=== PATIENT | female | born 1980 | race American Indian/Alaskan Native ===

== ENCOUNTER 2020-01-20 16:05 | Emergency (ER) | payer SELFPAY ==
[2020-01-20 16:55] VITALS: BP 217/103
--- NOTE | 2020-01-20 18:20 | Emergency Department Report ---
- General Chief complaint: Skin Rash Stated complaint: INSECT BITE Time Seen by Provider: 01/20/20 18:12 Source: patient Mode of arrival: Ambulatory Limitations: No Limitations - History of Present Illness Initial comments: 39-year-old F Filipino female presents emerged department complaining of insect bites to the left lower extremity of an unknown become to get red verna thematous and some blistering and she is worried about an infection and seeks treatment and further evaluation. No numbness or tingling. No fever, chills, sweats no chest pain palpitations no nausea or vomiting. MD complaint: insect bite/sting, discoloration -: Gradual, days(s) Tetanus Up to Date: no Location: LLE Severity: mild Quality: dull Consistency: constant Improves with: none Worsens with: none Context: none Associated symptoms: itching Treatments Prior to Arrival: none - Related Data Previous Rx's Medication Instructions Recorded Last Taken Type Clindamycin [Clindamycin CAP] 150 mg PO Q8HR #21 capsule 01/20/20 Unknown Rx Abscess Boil HPI - HPI Chief Complaint: Skin Rash Stated Complaint: INSECT BITE Time Seen by Provider: 01/20/20 18:12 Home Medications: Previous Rx's Medication Instructions Recorded Last Taken Type Clindamycin [Clindamycin CAP] 150 mg PO Q8HR #21 capsule 01/20/20 Unknown Rx ED Review of Systems ROS: Stated complaint: INSECT BITE Other details as noted in HPI Comment: All other systems reviewed and negative ED Past Medical Hx - Past Medical History Previous Medical History?: Yes Hx Hypertension: Yes Additional medical history: Crohns Disease - Surgical History Past Surgical History?: Yes Additional Surgical History: times 3 - Social History Smoking Status: Former Smoker Substance Use Type: None - Medications Home Medications: Home Medications Medication Instructions Recorded Confirmed Last Taken Type Clindamycin [Clindamycin CAP] 150 mg PO Q8HR #21 capsule 01/20/20 Unknown Rx ED Physical Exam - General Limitations: No Limitations General appearance: alert, in no apparent distress - Head Head exam: Present: atraumatic, normocephalic - Eye Eye exam: Present: normal appearance, PERRL, EOMI Pupils: Present: normal accommodation - ENT ENT exam: Present: normal exam, mucous membranes moist, TM's normal bilaterally - Neck Neck exam: Present: normal inspection, full ROM - Respiratory Respiratory exam: Present: normal lung sounds bilaterally. Absent: respiratory distress, wheezes, rales, chest wall tenderness - Cardiovascular Cardiovascular Exam: Present: regular rate, normal rhythm. Absent: systolic murmur, diastolic murmur, rubs, gallop - GI/Abdominal GI/Abdominal exam: Present: soft, normal bowel sounds - Extremities Exam Extremities exam: Present: normal inspection - Back Exam Back exam: Present: normal inspection. Absent: CVA tenderness (R), CVA tenderness (L) - Neurological Exam Neurological exam: Present: alert, oriented X3, CN II-XII intact - Psychiatric Psychiatric exam: Present: normal affect, normal mood - Skin Skin exam: Present: warm, dry, erythema (3 areas of blistering 2 areas of induration to the left lower extremity no lymphangitis noted. Tenderness with palpation to those indurated sites. Scant clear discharge from the posterior blistered wound. No popliteal mass. Pulses 2+ cap letter refills are brisk). Absent: rash ED Course Vital Signs 01/20/20 16:47 Temperature 98.9 F Pulse Rate 72 Respiratory 16 Rate Blood Pressure 217/103 [Right] O2 Sat by Pulse 99 Oximetry Critical care attestation.: If time is entered above; I have spent that time in minutes in the direct care of this critically ill patient, excluding procedure time. ED Disposition Clinical Impression: Insect bite Disposition: DC-01 TO HOME OR SELFCARE Is pt being admited?: No Does the pt Need Aspirin: No Condition: Stable Instructions: Insect Bite, Adult Additional Instructions: Please be sure to follow-up with your HAND STRIPPER with in 2 to 3 days for reevaluation alert number the medication that you are currently taking so they can follow along with the treatment progress Prescriptions: Clindamycin [Clindamycin CAP] 150 mg PO Q8HR #21 capsule Referrals: [facility] [Provider Group] - 3-5 Days
== END 2020-01-20 18:32 | disposition home or self-care (01) ==
LOC: ED 16:05
DX: S80.862A Insect bite (nonvenomous), left lower leg, initial encounter (principal); I10 Essential (primary) hypertension; Z98.890 Other specified postprocedural states; Z87.891 Personal history of nicotine dependence; Z79.899 Other long term (current) drug therapy; W57.XXXA Bitten or stung by nonvenomous insect and other nonvenomous arthropods, initial encounter; Y93.89 Activity, other specified; Y92.89 Other specified places as the place of occurrence of the external cause; Y99.8 Other external cause status
CPT/HCPCS: 99281

== ENCOUNTER 2020-03-24 14:23 | Emergency (ER) | payer MEDICAID ==
[2020-03-24 14:42] VITALS: BP 193/107
--- NOTE | 2020-03-24 15:03 | Emergency Department Report ---
ED General Adult HPI - General Chief complaint: High BP Stated complaint: HYPERTENSIVE Time Seen by Provider: 03/24/20 14:56 Source: patient Mode of arrival: Ambulatory Limitations: No Limitations - History of Present Illness Initial comments: Patient is a 39-year-old, 16-week , hypertensive female who presents to the emergency department after being sent by her WILDLIFE PROTECTOR office (by triage nurse, prior to evaluation, at facility where she was a new patient) for evaluation of hypertension noted during routine 4-month obstetric evaluation. Patient notes noncompliance with amlodipine since November. Patient denies headache, denies chest pain, denies palpitations. Patient denies fever, though notes she has been sick with upper respiratory infection symptoms for the past several days. - Related Data Previous Rx's Medication Instructions Recorded Last Taken Type Clindamycin [Clindamycin CAP] 150 mg PO Q8HR #21 capsule 01/20/20 Unknown Rx labetaloL [Labetalol 100mg TAB] 100 mg PO BID #60 tablet 03/24/20 Unknown Rx Allergies Allergy/AdvReac Type Severity Reaction Status Date / Time Penicillins Allergy Rash Verified 03/24/20 14:38 ED Review of Systems ROS: Stated complaint: HYPERTENSIVE Other details as noted in HPI Comment: All other systems reviewed and negative ED Past Medical Hx - Past Medical History Previous Medical History?: Yes Hx Hypertension: Yes Additional medical history: Crohns Disease - Surgical History Additional Surgical History: times 3 - Social History Smoking Status: Never Smoker - Medications Home Medications: Home Medications Medication Instructions Recorded Confirmed Last Taken Type Clindamycin [Clindamycin CAP] 150 mg PO Q8HR #21 capsule 01/20/20 Unknown Rx labetaloL [Labetalol 100mg TAB] 100 mg PO BID #60 tablet 03/24/20 Unknown Rx ED Physical Exam - General Limitations: No Limitations General appearance: alert, in no apparent distress - Head Head exam: Present: atraumatic, normocephalic - Eye Eye exam: Present: normal appearance - ENT ENT exam: Present: mucous membranes moist - Neck Neck exam: Present: normal inspection - Respiratory Respiratory exam: Present: normal lung sounds bilaterally. Absent: respiratory distress - Cardiovascular Cardiovascular Exam: Present: regular rate, normal rhythm. Absent: systolic murmur, diastolic murmur, rubs, gallop - GI/Abdominal GI/Abdominal exam: Present: soft, normal bowel sounds, other (gravid) - Extremities Exam Extremities exam: Present: normal inspection - Back Exam Back exam: Present: normal inspection - Neurological Exam Neurological exam: Present: alert, oriented X3 - Psychiatric Psychiatric exam: Present: normal affect, normal mood - Skin Skin exam: Present: warm, dry, intact, normal color. Absent: rash ED Course Vital Signs 03/24/20 03/24/20 14:39 16:28 Temperature 99.1 F Pulse Rate 90 Respiratory 18 18 Rate Blood Pressure 193/107 O2 Sat by Pulse 100 100 Oximetry ED Medical Decision Making - Lab Data Result diagrams: 03/24/20 15:09 03/24/20 15:09 Critical care attestation.: If time is entered above; I have spent that time in minutes in the direct care of this critically ill patient, excluding procedure time. ED Disposition Clinical Impression: Hypertensive disorder, Noncompliance with medication regimen Disposition: - TO HOME OR SELFCARE Is pt being admited?: No Condition: Stable Instructions: Hypertension During , Hypertension, Adult, Hypertension (ED) Prescriptions: labetaloL [Labetalol 100mg TAB] 100 mg PO BID #60 tablet Referrals: DIANE HUTCHINS MD [Primary Care Provider] - 3-5 Days
[2020-03-24 15:31] LABS: Basophils % (Auto) 0.3 % (0.0-1.8); Eosinophils # (Auto) 0.2 K/mm3 (0.0-0.4); Eosinophils % (Auto) 2.3 % (0.0-4.3); Hematocrit 36.3 % (30.3-42.9); Hemoglobin 11.8 gm/dl (10.1-14.3); Lymphocytes # (Auto) 1.5 K/mm3 (1.2-5.4); Lymphocytes % (Auto) 16.2 % (13.4-35.0); Mean Corpuscular HGB Conc 32 % (30-34); Mean Corpuscular Volume 83 fl (79-97); Monocytes # (Auto) 0.7 K/mm3 (0.0-0.8); Monocytes % (Auto) 7.4 % (0.0-7.3); Platelet Count 211 K/mm3 (140-440); Red Blood Count 4.39 M/mm3 (3.65-5.03); Red Cell Distribution Width 14.3 % (13.2-15.2)
[2020-03-24 15:35] LABS: Bacteria,Urine 1+ /HPF (Negative); Bilirubin,Urine NEG (Negative); Blood,Urine NEG (Negative); Color,Urine Yellow (Yellow); Mucus,Urine FEW /HPF; Protein,Urine <15 mg/dL mg/dL (Negative); Urobilinogen,Urine < 2.0 mg/dL (<2.0)
[2020-03-24 15:58] LABS: Alanine Aminotransferase 23 units/L (7-56); Albumin 3.5 g/dL (3.9-5); Blood Urea Nitrogen 10 mg/dL (7-17); Hemolysis Index 4
[2020-03-24 16:03] LABS: BUN/Creatinine Ratio 17
[2020-03-24] MEDS ORDERED: MAGNESIUM SULFATE 0 GM/0 ML BAG IV ONE (16:29)
[2020-03-24] MEDS ORDERED: MAGNESIUM SULFATE 1 GM in SODIUM CHLORIDE 0.9% 50 ML IV ONE (17:00)
== END 2020-03-24 17:29 | disposition home or self-care (01) ==
LOC: ED 14:23
DX: I10 Essential (primary) hypertension (principal); Z91.14 Patient's other noncompliance with medication regimen; Z79.899 Other long term (current) drug therapy; Z88.0 Allergy status to penicillin
CPT/HCPCS: 36415; 80053; 81001; 83735; 85025; 96365; 99283; J3475

== ENCOUNTER 2020-04-13 12:16 | Emergency (ER) | payer MEDICAID ==
--- NOTE | 2020-04-13 12:52 | Emergency Department Report ---
ED General Adult HPI - General Chief complaint: High BP Stated complaint: HIGH BLOOD PRESSURE/19WKS 5 DAYS Time Seen by Provider: 04/13/20 12:31 Source: patient Mode of arrival: Ambulatory Limitations: No Limitations - History of Present Illness Initial comments: Patient is 39 years old female 4 para 3 with history of hypertension. Patient currently followed by [facility]. Patient stated that she is 19 weeks and 5 days . Patient sent from her OB doctor to the ER for evaluation of high blood pressure. Patient blood pressure is 191/100. Patient is complaining of headache. Patient denied any neck pain, blurry vision, weakness numbness or tingling sensation. Patient denied any abdominal pain, vaginal bleeding or vaginal discharge. Patient started on labetalol 100 mg twice a day and recently increased to 200 mg twice a day. -: This morning Location: head Radiation: non-radiation Associated Symptoms: denies other symptoms Treatments Prior to Arrival: none - Related Data Previous Rx's Medication Instructions Recorded Last Taken Type Clindamycin [Clindamycin CAP] 150 mg PO Q8HR #21 capsule 01/20/20 Unknown Rx labetaloL [Labetalol 100mg TAB] 100 mg PO BID #60 tablet 03/24/20 Unknown Rx Allergies Allergy/AdvReac Type Severity Reaction Status Date / Time Penicillins Allergy Rash Verified 04/13/20 12:20 ED Review of Systems ROS: Stated complaint: HIGH BLOOD PRESSURE/19WKS 5 DAYS Other details as noted in HPI Comment: All other systems reviewed and negative Constitutional: denies: chills, fever Respiratory: denies: cough, shortness of breath, SOB with exertion Cardiovascular: denies: chest pain, palpitations Gastrointestinal: denies: abdominal pain, nausea, vomiting Musculoskeletal: denies: back pain Neurological: headache. denies: weakness, numbness, paresthesias, confusion, abnormal gait ED Past Medical Hx - Past Medical History Hx Hypertension: Yes Additional medical history: Crohns Disease - Surgical History Additional Surgical History: times 3 - Social History Smoking Status: Never Smoker - Medications Home Medications: Home Medications Medication Instructions Recorded Confirmed Last Taken Type Clindamycin [Clindamycin CAP] 150 mg PO Q8HR #21 capsule 01/20/20 Unknown Rx labetaloL [Labetalol 100mg TAB] 100 mg PO BID #60 tablet 03/24/20 Unknown Rx ED Physical Exam - General Limitations: No Limitations General appearance: alert, in no apparent distress - Head Head exam: Present: atraumatic, normocephalic, normal inspection - Eye Eye exam: Present: normal appearance, PERRL - ENT ENT exam: Present: normal exam, normal orophraynx, mucous membranes moist - Neck Neck exam: Present: normal inspection, full ROM. Absent: tenderness, meningismus - Respiratory Respiratory exam: Present: normal lung sounds bilaterally - Cardiovascular Cardiovascular Exam: Present: regular rate, normal rhythm, normal heart sounds - GI/Abdominal GI/Abdominal exam: Present: soft, normal bowel sounds. Absent: distended, tenderness, guarding, rebound, rigid, organomegaly, mass, bruit, pulsatile mass, hernia - Extremities Exam Extremities exam: Present: normal inspection, full ROM, normal capillary refill. Absent: pedal edema, calf tenderness - Back Exam Back exam: Present: normal inspection, full ROM. Absent: CVA tenderness (R), CVA tenderness (L) - Neurological Exam Neurological exam: Present: alert, oriented X3, CN II-XII intact, normal gait, reflexes normal. Absent: motor sensory deficit - Psychiatric Psychiatric exam: Present: normal mood - Skin Skin exam: Present: warm, intact, normal color ED Course Vital Signs 04/13/20 04/13/20 04/13/20 12:24 13:05 13:07 Temperature 99.4 F Pulse Rate 75 66 Respiratory 18 12 Rate Blood Pressure 191/100 Blood Pressure 167/80 [Right] O2 Sat by Pulse 99 100 99 Oximetry 04/13/20 04/13/20 04/13/20 13:08 13:15 13:45 Temperature Pulse Rate 66 71 77 Respiratory 22 16 Rate Blood Pressure 167/80 167/80 151/77 Blood Pressure [Right] O2 Sat by Pulse 99 98 Oximetry 04/13/20 04/13/20 04/13/20 14:15 14:31 14:53 Temperature Pulse Rate 62 61 66 Respiratory 19 21 19 Rate Blood Pressure 131/67 144/72 Blood Pressure 147/78 [Right] O2 Sat by Pulse 96 99 99 Oximetry ED Medical Decision Making - Lab Data Result diagrams: 04/13/20 12:53 04/13/20 12:53 - Medical Decision Making Patient is 39 years old female 4 para 3 with history of hypertension. Patient currently followed by [facility]. Patient stated that she is 19 weeks and 5 days . Patient sent from her OB doctor to the ER for evaluation of high blood pressure. Patient blood pressure is 191/100. Patient is co mplaining of headache. Patient denied any neck pain, blurry vision, weakness numbness or tingling sensation. Patient denied any abdominal pain, vaginal bleeding or vaginal discharge. Patient started on labetalol 100 mg twice a day and recently increased to 200 mg twice a day. Patient received labetalol 10mg x 2 with improvement in her blood pressure however patient received a call from her home stating that her water has been cut off by water department and she became very upset her blood pressure went up again to 197/100. I discussed the patient with Dr. Mariscal, OB for the patient she advised to give hydralazine 20 mg IV and discharged the patient on labetalol 200 mg 3 times a day instead of 2 times a day. Patient informed about the change and understand instruction very well. Patient also advised to return to the ER if she develop any new symptoms or if symptoms get worse. At this moment patient stated that she does not have any headache, neck pain, weakness, numbness or tingling sensation. No bowel or bladder incontinence. Patient also denied any vaginal bleeding or abdominal pain. Critical care attestation.: If time is entered above; I have spent that time in minutes in the direct care of this critically ill patient, excluding procedure time. ED Disposition Clinical Impression: Hypertension affecting in second trimester, Disposition: TO HOME OR SELFCARE Is pt being admited?: No Condition: Stable Instructions: Hypertension (ED), Hypertension During , [id number] Referrals: PRIMARY CAR[facility]D [Primary Care Provider] - 3-5 Days MONY MARISCAL MD [Staff Physician] - 3-5 Days
[2020-04-13 13:12] LABS: Basophils % (Auto) 0.2 % (0.0-1.8); Eosinophils # (Auto) 0.2 K/mm3 (0.0-0.4); Eosinophils % (Auto) 2.8 % (0.0-4.3); Hematocrit 35.8 % (30.3-42.9); Hemoglobin 11.8 gm/dl (10.1-14.3); Lymphocytes # (Auto) 1.7 K/mm3 (1.2-5.4); Lymphocytes % (Auto) 20.5 % (13.4-35.0); Mean Corpuscular HGB Conc 33 % (30-34); Mean Corpuscular Volume 82 fl (79-97); Monocytes # (Auto) 0.5 K/mm3 (0.0-0.8); Monocytes % (Auto) 6.4 % (0.0-7.3); Platelet Count 196 K/mm3 (140-440); Red Blood Count 4.35 M/mm3 (3.65-5.03); Red Cell Distribution Width 14.2 % (13.2-15.2)
[2020-04-13 13:21] LABS: INR 0.97 (0.87-1.13)
[2020-04-13 13:22] LABS: Partial Thromboplastin Time 27.6 Sec. (24.2-36.6)
[2020-04-13 13:31] LABS: Alanine Aminotransferase 30 units/L (7-56); Albumin 3.5 g/dL (3.9-5); Blood Urea Nitrogen 6 mg/dL (7-17); Hemolysis Index 5
[2020-04-13 13:40] LABS: BUN/Creatinine Ratio 9; Bilirubin,Direct < 0.2 mg/dL (0-0.2)
[2020-04-13] MEDS ORDERED: hydrALAZINE 20 MG/1 ML INJ IV ONE (15:44)
[2020-04-13 18:26] LABS: Bacteria,Urine 1+ /HPF (Negative); Bilirubin,Urine NEG (Negative); Blood,Urine NEG (Negative); Color,Urine Straw (Yellow); Protein,Urine <15 mg/dL mg/dL (Negative); Urobilinogen,Urine < 2.0 mg/dL (<2.0)
[2020-04-13] MEDS ORDERED: ACETAMINOPHEN 325 MG TAB PO ONE (18:42)
[2020-04-13 18:47] VITALS: BP 146/84
== END 2020-04-13 19:15 | disposition home or self-care (01) ==
LOC: ED 12:16
DX: O16.2 Unspecified maternal hypertension, second trimester (principal); Z3A.19 19 weeks gestation of pregnancy; Z98.890 Other specified postprocedural states; Z79.2 Long term (current) use of antibiotics; Z79.899 Other long term (current) drug therapy; Z88.0 Allergy status to penicillin
CPT/HCPCS: 36415; 80048; 80076; 81001; 85025; 85610; 85730; 96374; 96375; 96376; 99283; J0360

== ENCOUNTER 2020-04-19 15:48 | Outpatient (CLI) | payer MEDICAID ==
[2020-04-19 17:24] LABS: Bilirubin,Urine NEG (Negative); Blood,Urine NEG (Negative); Color,Urine Yellow (Yellow); Mucus,Urine FEW /HPF
[2020-04-19 18:12] VITALS: BP 136/58
== END 2020-04-19 18:31 | disposition home or self-care (01) ==
LOC: TRG 15:48 → APU 15:50 → TRG 18:31
PROVIDERS: ATTEND Obstetrics & Gynecology
DX: O13.3 Gestational [pregnancy-induced] hypertension without significant proteinuria, third trimester (principal); Z3A.20 20 weeks gestation of pregnancy
CPT/HCPCS: 81001

== ENCOUNTER 2020-04-30 11:37 | Observation (INO) | payer MEDICAID ==
[2020-04-30] MEDS ORDERED: LACTATED RINGERS 1,000 ML IV SCH (13:30)
[2020-04-30 13:42] LABS: Bilirubin,Urine NEG (Negative); Blood,Urine NEG (Negative); Color,Urine Yellow (Yellow); Protein,Urine <15 mg/dL mg/dL (Negative); RBC,Urine < 1.0 /HPF (0.0-6.0); Urobilinogen,Urine < 2.0 mg/dL (<2.0)
[2020-04-30 13:56] LABS: Hematocrit 36.1 % (30.3-42.9); Hemoglobin 12.1 gm/dl (10.1-14.3); Mean Corpuscular HGB Conc 34 % (30-34); Mean Corpuscular Volume 83 fl (79-97); Platelet Count 192 K/mm3 (140-440); Red Blood Count 4.33 M/mm3 (3.65-5.03); Red Cell Distribution Width 13.9 % (13.2-15.2)
[2020-04-30 14:13] LABS: Alanine Aminotransferase 22 units/L (7-56); Uric Acid 3.1 mg/dL (3.5-7.6)
[2020-04-30] MEDS: hydrALAZINE 20 MG/1 ML INJ IV PRN ×2 (14:17→14:43)
[2020-04-30] MEDS ORDERED: diphenhydrAMINE 25 MG CAP PO PRN (14:55)
[2020-04-30] MEDS ORDERED: SIMETHICONE 80 MG CHEW TAB PO PRN (14:55)
[2020-04-30] MEDS ORDERED: DOCUSATE SODIUM 100 MG CAP PO PRN (14:55)
[2020-04-30] MEDS ORDERED: ALUM-MAG HYDROXIDE-SIMETHICONE 200-200-20MG/5ML ORAL LIQD 30 ML PO PRN (14:55)
--- NOTE | 2020-04-30 14:58 | Ultrasound Report ---
US transvaginal, US OB limited INDICATION: PAIN. TECHNIQUE: Transabdominal. Color Doppler was performed. COMPARISON: None available. FINDINGS: There is a single intrauterine . Biparietal Diameter = 5 cm Head Circumference = 18.8 cm Abdominal Circumference = 15.8 cm Femur Length = 3.7 cm Average Ultrasound Age (AUA) = 21 weeks, 1 day(s). Heart Rate: 141 beats per minute. Estimated Weight in grams (if calculated): 408 Position: breech. Cervix: Length in cm (if measured): 2.7 cm. Appears closed. Placenta: Posterior and low lying Amniotic Fluid Volume: normal Amniotic Fluid Index (ALEXSANDRA) in cm (if calculated): 4.3. IMPRESSION: 1. Single, living intrauterine with estimated sonographic age of 21 weeks, 1 day(s). 2. Low-lying placenta. Signer Name: Terrance Zuniga MD Signed: 04/30/2020 2:53 PM Workstation Name: [id number]
[2020-04-30] MEDS ORDERED: hydrALAZINE 20 MG/1 ML INJ IV ONE (15:10)
[2020-04-30] MEDS: ACETAMINOPHEN 500 MG TAB PO PRN (15:20)
--- NOTE | 2020-04-30 16:19 | History and Physical Report ---
History of Present Illness Date of examination: 04/30/20 Chief complaint: lower abdominal pain that is sharp and intermittent for the past 2wks. pt also states that she is stressed at work. History of present illness: at 22wks by EDC per pt and care at [facility]. Pt also seen by [facility]. Pt came with c/o abdominal pain that is intermittent x2wks. Pt admits to movement, denies headache, vag bleed or leakage of fluid or feeling ctx. Pt denies dysuria. Past History Past Medical History: other (Crohns disease dx in 2010 on no meds) Past Surgical History: section (x3, last baby 14yrs ago) Social history: no significant social history - Obstetrical History : 6 Para: 3 (all full term c/sections) Hx # Term Pregnancies: 3 Spontaneous Abortions: 2 Number of Living Children: 3 Medications and Allergies Allergies Allergy/AdvReac Type Severity Reaction Status Date / Time Penicillins Allergy Rash Verified 04/13/20 12:20 Home Medications Medication Instructions Recorded Confirmed Last Taken Type Clindamycin [Clindamycin CAP] 150 mg PO Q8HR #21 capsule 01/20/20 Unknown Rx labetaloL [Labetalol 100mg TAB] 100 mg PO BID #60 tablet 03/24/20 Unknown Rx labetaloL [Labetalol 200mg TAB] 200 mg PO TID #90 tablet 04/13/20 Unknown Rx Active Meds: Active Medications Acetaminophen (Acetaminophen 500 Mg Tab) 1,000 mg PO Q6H PRN PRN Reason: Pain, Mild (1-3) Last Admin: 04/30/20 15:20 Dose: 1,000 mg Documented by: Al Hydrox/Mg Hydrox/Simethicone (Alum-Mag Hydroxide-Simethicone [phone]/5ml Oral Liqd 30 Ml) 30 ml PO Q6H PRN PRN Reason: Indigestion Diphenhydramine HCl (Diphenhydramine 25 Mg Cap) 25 mg PO Q6H PRN PRN Reason: Itching Docusate Sodium (Docusate Sodium 100 Mg Cap) 100 mg PO Q12H PRN PRN Reason: Constipation Hydralazine HCl (Hydralazine 20 Mg/1 Ml Inj) 5 mg IV ONCE PRN PRN Reason: repeat in 10 min Last Admin: 04/30/20 14:43 Dose: 5 mg Documented by: Lactated Ringer's (Lactated Ringers) 1,000 mls @ 125 mls/hr IV DIRECT [facility] Labetalol HCl (Labetalol 200 Mg Tab) 300 mg PO BID [facility] Last Admin: 04/30/20 15:24 Dose: 300 mg Documented by: Multivitamins/Iron/Calcium ( [id number] Fumarate-Folic Acid Vit Tab) 1 each PO QDAY [facility] Simethicone (Simethicone 80 Mg Chew Tab) 80 mg PO Q6H PRN PRN Reason: Gas pain Sodium Chloride (Sodium Chloride 0.9% 10 Ml Flush Syringe) 10 ml IV PRN PRN PRN Reason: LINE FLUSH Review of Systems All systems: negative (abdominal pain that is intermittent) - Vital Signs Vital signs: Vital Signs Pulse BP 67 169/85 04/30/20 12:49 04/30/20 12:49 Temp Pulse Resp BP Pulse Ox 98.8 F 79 20 123/67 97 04/30/20 13:02 04/30/20 16:10 04/30/20 13:02 04/30/20 16:04 04/30/20 16:10 - Physical Exam Cardiovascular: Regular rate Lungs: Positive: Normal air movement Abdomen: Positive: soft Uterus: Positive: enlarged (non-tender gravid) Extremities: Positive: normal - Obstetrical FHR: category 1 Uterine Contraction Monitor Mode: External Uterine Contraction Pattern: Absent Results Result Diagrams: 04/30/20 Unknown 04/30/20 Unknown Abnormal lab results 04/30/20 Range/Units Unknown Uric Acid 3.1 L (3.5-7.6) mg/dL Lactate Dehydrogenase 226 H (91-180) units/L All other labs normal. Assessment and Plan IUP at 22wks with uncontrolled hypertension and abdominal pain of unknown cause 1. Admit to 24hr observation 2. Consult [facility] 3. Treat with IV hydrallazine and increase po labetalol to 300mg bid 4. Check pih labs baseline 5. OB u/sound and transvag with low lying placenta 6. Obtain records all questions encouraged and answered
--- NOTE | 2020-04-30 16:54 | Consultation ---
History of Present Illness Consult date: 04/30/20 Requesting physician: CHARLIE ARMSTRONG History of present illness: [facility] Ms. Villagran is a 39 y/o LIZ 09/02/20 EGA at 22 1/7 weeks presented with Lower abdominal and Left Lower pelvic pain Abdominal pain over past 2 weeks - lower pelvic pain more severe last couple days was 6/10 now resolved - worse " when I am at work at [employer] I stand 8-11 hours a day " Denies Vag bleeding ctx's or leaking, Pos FM's On presentation to hospital BP's noted to be elevated at 178/104 per nurse - received IV hydralazine X 2 and PO labetalo increased from 200 BID to 300 BID BP's now improved latest 125/65, 137/59 Recent BHATTI' (" attributed to not eating ") received Tylenol now improved H/O Crohns Ds Labs H/H at AST/ALT at Creat at .6 UA spot Prot at < 15 Plts at 192 OB C/S X 3 2001 T C/S FTP, 2004 Repeat, 2006 repeat ?? PP HTN after last 2 Med Crohns - no flares over past few years in remission not on meds No sTD Pos smoker 1 per day Surg C/S X 3 Abd gravid No RUQ Pain Back No CVA Ext NT no edema DTR 1-04/15 , no clonus [facility] US 04/30/20 EFW at 408 grams - 11% [facility] US 04/06/20 EFW at 235 grams - 24% Past History Past Medical History: other (Crohns disease dx in 2010 on no meds) Past Surgical History: section (x3, last baby 14yrs ago) - Obstetrical History : 6 Medications and Allergies Allergies Allergy/AdvReac Type Severity Reaction Status Date / Time Penicillins Allergy Rash Verified 04/13/20 12:20 Home Medications Medication Instructions Recorded Confirmed Last Taken Type Clindamycin [Clindamycin CAP] 150 mg PO Q8HR #21 capsule 01/20/20 Unknown Rx labetaloL [Labetalol 100mg TAB] 100 mg PO BID #60 tablet 03/24/20 Unknown Rx labetaloL [Labetalol 200mg TAB] 200 mg PO TID #90 tablet 04/13/20 Unknown Rx Active Meds: Active Medications Acetaminophen (Acetaminophen 500 Mg Tab) 1,000 mg PO Q6H PRN PRN Reason: Pain, Mild (1-3) Last Admin: 04/30/20 15:20 Dose: 1,000 mg Documented by: Al Hydrox/Mg Hydrox/Simethicone (Alum-Mag Hydroxide-Simethicone [phone]/5ml Oral Liqd 30 Ml) 30 ml PO Q6H PRN PRN Reason: Indigestion Diphenhydramine HCl (Diphenhydramine 25 Mg Cap) 25 mg PO Q6H PRN PRN Reason: Itching Docusate Sodium (Docusate Sodium 100 Mg Cap) 100 mg PO Q12H PRN PRN Reason: Constipation Hydralazine HCl (Hydralazine 20 Mg/1 Ml Inj) 5 mg IV ONCE PRN PRN Reason: repeat in 10 min Last Admin: 04/30/20 14:43 Dose: 5 mg Documented by: Lactated Ringer's (Lactated Ringers) 1,000 mls @ 125 mls/hr IV DIRECT [facility] Labetalol HCl (Labetalol 200 Mg Tab) 300 mg PO BID [facility] Last Admin: 04/30/20 15:24 Dose: 300 mg Documented by: Multivitamins/Iron/Calcium ( [id number] Fumarate-Folic Acid Vit Tab) 1 each PO QDAY [facility] Simethicone (Simethicone 80 Mg Chew Tab) 80 mg PO Q6H PRN PRN Reason: Gas pain Sodium Chloride (Sodium Chloride 0.9% 10 Ml Flush Syringe) 10 ml IV PRN PRN PRN Reason: LINE FLUSH - Vital Signs Vital signs: Vital Signs Pulse BP 67 169/85 04/30/20 12:49 04/30/20 12:49 Temp Pulse Resp BP Pulse Ox 98.8 F 82 20 135/79 99 04/30/20 13:02 04/30/20 16:45 04/30/20 13:02 04/30/20 16:35 04/30/20 16:45 Results Result Diagrams: 04/30/20 Unknown 04/30/20 Unknown Abnormal lab results 04/30/20 Range/Units Unknown Uric Acid 3.1 L (3.5-7.6) mg/dL Lactate Dehydrogenase 226 H (91-180) units/L All other labs normal. Assessment and Plan Impression: 1. [place] IUP at 22 1/7 weeks 2. CHTN with Elevated BP's 3. Lower Abdominal Pain 4. H/O Crohns ds 5. Prior C/S X 3 6. Smoker 7. AMA Recommendations 1. Agree with increasing Labetalol from 200 to 300 BID 2. Encouraged to try to find job where she is not required to stand 8-11 hours per day 3. Stop smoking 4. LDA 5. PIH labs done - WNL 6. Would obtain baseline 24 Hour urine prot and CC 7. If BP' remain stable overnight would allow discharge on Labetalol 300 BID and LDA - Call for S/S of PIH or DFM' and follow up with [facility] at next scheduled appointment
[2020-04-30] MEDS: ASPIRIN 81 MG TAB CHEW PO SCH (21:50)
--- NOTE | 2020-05-01 06:53 | Event Note ---
Date: 05/01/20 BP noticed to be elevated during the night however nurse did not call me. I spoke later with the nurse who states that when pt is lying on her back her BP was elevated and when retaken on her right side, they were normal. Pt slept well during the night and denies any headache. Nurse told to call MD next time with elevated BP. At this time pt is stable on labetalol 300mg bid and low dose aspirin 81mg daily. Will notify the insulation helper provider for today.
[2020-05-01] MEDS ORDERED: PRENATAL VIT27-FE FUMARATE-FOLIC ACID VIT TAB PO SCH (10:00)
[2020-05-01] MEDS: ASPIRIN 81 MG TAB CHEW PO SCH (12:55)
[2020-05-01] MEDS: ACETAMINOPHEN 500 MG TAB PO PRN (12:57)
--- NOTE | 2020-05-01 17:11 | Progress Note ---
Assessment and Plan - Patient Problems (1) Chronic hypertension affecting Current Visit: Yes Status: Acute Plan to address problem: Patient with elevated BPs, titrated from labetolol 200mg BID to 300mg BID --BPs overall nontensive but with occasional spikes associated with position changes or activity, monitor closely --Continue labetolol 300mg BID, titrate as indicated --ASA 81mg qday --Monitor for s/sx of SPE --Dispo pending 24H TP, has close follow up Sunday and Sunday of next week Subjective - Subjective Date of service: 05/01/20 Principal diagnosis: r/o PTL, CHTN, Chron dz Interval history: Patient doing well without complaints. Denies labor complaints or PIH symptoms. +FM. Understands plan of care for BP monitoring and completion of 24H TP. Patient thinks that triggers from BP are personal/family Hx of BP issues and job where she needs to be up and active. Has found another job, but doesn't start u ntil May 2020. Objective - Vital Signs Latest vital signs: Vital Signs Temp Pulse Resp BP BP BP Pulse Ox 05/01/20 16:46 79 169/74 05/01/20 16:16 64 130/66 05/01/20 15:46 72 148/68 05/01/20 15:16 75 135/68 05/01/20 14:46 73 137/70 05/01/20 14:16 65 136/66 05/01/20 13:46 71 158/76 05/01/20 13:16 68 138/63 05/01/20 12:57 16 05/01/20 12:46 67 145/85 05/01/20 12:17 65 138/73 05/01/20 11:46 71 123/64 05/01/20 11:16 70 127/63 05/01/20 10:46 76 132/61 05/01/20 10:16 75 110/56 05/01/20 09:46 82 104/51 05/01/20 09:22 79 119/57 05/01/20 09:16 79 119/57 05/01/20 08:46 64 168/77 05/01/20 08:16 64 150/75 05/01/20 07:45 65 135/75 05/01/20 07:20 64 174/81 02/20/21 07:08 98.5 F 65 14 153/72 153/72 100 02/20/21 07:00 98.9 F 92 H 14 140/74 02/20/21 06:46 64 166/76 02/20/21 06:15 63 149/67 02/20/21 06:07 65 141/66 02/20/21 06:05 141/66 02/20/21 05:53 98.4 F 61 18 185/84 02/20/21 05:50 61 185/84 02/20/21 05:46 67 197/97 02/20/21 05:17 64 173/81 02/20/21 04:46 68 191/84 02/20/21 04:16 73 158/89 02/20/21 03:46 71 139/69 02/20/21 03:16 71 132/62 02/20/21 03:10 61 147/88 0220/21 02:46 74 180/86 02/20/21 02:16 70 135/60 02/20/21 01:46 76 139/65 02/20/21 01:23 96 H 88 02/20/21 01:19 85 100 02/20/21 01:13 66 99 02/20/21 01:08 68 98 02/20/21 01:03 73 98 02/20/21 00:58 69 97 02/20/21 00:53 68 99 02/20/21 00:48 66 97 02/20/21 00:45 70 137/90 02/20/21 00:43 69 98 02/20/21 00:38 71 99 02/20/21 00:33 70 99 02/20/21 00:28 73 97 02/20/21 00:23 68 99 02/20/21 00:18 74 99 02/20/21 00:15 65 144/77 02/20/21 00:13 73 100 02/20/21 00:08 65 99 02/20/21 00:03 66 99 02/19/21 23:58 69 100 02/19/21 23:53 73 99 02/19/21 23:48 68 98 02/19/21 23:46 65 155/85 02/19/21 23:45 98.2 F 20 02/19/21 23:43 68 99 02/19/21 23:38 67 100 02/19/21 23:29 81 98 04/30/20 23:28 83 116/57 04/30/20 23:24 74 96 04/30/20 23:19 70 96 04/30/20 23:17 72 116/57 04/30/20 23:14 74 97 04/30/20 23:09 73 96 04/30/20 23:04 70 96 04/30/20 22:59 78 100 04/30/20 22:54 70 98 04/30/20 22:49 68 97 04/30/20 22:45 69 128/61 04/30/20 22:44 70 94 04/30/20 22:43 71 94 04/30/20 22:39 93 H 98 04/30/20 22:37 71 94 04/30/20 22:34 72 94 04/30/20 22:32 74 94 04/30/20 22:29 73 95 04/30/20 22:26 76 94 04/30/20 22:24 76 95 04/30/20 22:20 71 94 04/30/20 22:19 72 94 04/30/20 22:15 73 132/68 04/30/20 22:14 73 97 04/30/20 22:12 78 94 04/30/20 22:09 77 95 04/30/20 22:04 75 96 04/30/20 21:59 72 97 04/30/20 21:54 92 H 100 04/30/20 21:49 80 98 04/30/20 21:47 98.0 F 72 16 137/63 137/63 04/30/20 21:44 81 99 04/30/20 21:39 75 97 04/30/20 21:34 86 98 04/30/20 21:29 72 97 04/30/20 21:24 87 98 04/30/20 21:19 72 98 04/30/20 21:15 72 132/64 04/30/20 21:14 76 97 04/30/20 21:09 76 98 04/30/20 21:04 81 99 04/30/20 20:59 91 H 99 02 20:54 93 H 98 04/30/20 20:49 76 98 04/30/20 20:46 71 143/79 04/30/20 20:45 86 90 04/30/20 20:44 80 97 04/30/20 20:36 79 100 04/30/20 20:31 76 98 04/30/20 20:26 78 100 04/30/20 20:21 79 97 04/30/20 20:16 74 98 04/30/20 20:15 74 127/62 04/30/20 20:11 74 97 04/30/20 20:06 84 99 04/30/20 20:01 74 97 04/30/20 19:56 75 98 04/30/20 19:51 73 99 04/30/20 19:46 84 126/60 98 04/30/20 19:41 72 100 04/30/20 19:36 70 98 04/30/20 19:31 72 97 04/30/20 19:26 74 98 04/30/20 19:21 69 99 04/30/20 19:17 71 128/62 04/30/20 19:16 74 97 04/30/20 19:11 78 99 04/30/20 19:06 76 98 04/30/20 19:01 72 98 04/30/20 18:56 69 100 04/30/20 18:51 71 98 04/30/20 18:47 80 136/76 04/30/20 18:46 76 99 04/30/20 18:41 70 96 04/30/20 18:36 70 96 04/30/20 18:35 74 89 04/30/20 18:31 70 98 04/30/20 18:26 76 98 04/30/20 18:21 87 98 04/30/20 18:16 73 98 04/30/20 18:15 58 L 91 04/30/20 17:52 79 99 04/30/20 17:47 70 99 04/30/20 17:42 69 98 04/30/20 17:37 80 100 04/30/20 17:25 74 96 04/30/20 17:20 73 97 04/30/20 17:19 67 135/68 04/30/20 17:15 74 99 04/30/20 17:13 92 H 94 - Exam Cardiovascular: Present: Regular rate, Normal S1 Lungs: Present: Clear to auscultation Abdomen: Present: normal appearance Uterus: Present: other (gravid) Deep Tendon Reflex Grade: Normal +2
[2020-05-01 19:17] VITALS: BP 139/65
--- NOTE | 2020-05-01 19:29 | Discharge Summary ---
Providers - Providers Date of Admission: 04/30/20 14:55 Date of discharge: 05/01/20 Attending physician: CHARLIE ARMSTRONG 04/30/20 14:53 Consult to Physician [CONS] Routine Comment: Consulting Provider: [facility] Physician Instructions: Reason For Exam: hypertension, IUP at 22wk Primary care physician: CHARLIE ARMSTRONG Hospitalization Reason for admission: labor, other (elevated BPs, known CHTN) Pertinent studies: PIH labs wnl TP 255 Hospital course: 39 yo at 22w2d c/b Chrons disease and CHTN (labetelol 200mg BID) presenting with intermittent abdominal pain x 2 weeks. No evidence of labor with normal movement, however with elevated BPs on current management. Increased from labetolol 200 to 300mg BID. PIH labs wnl. Ordered 24H TP, resulted at 255. Patient overall normotensive on current regimen and discharge home in good condition. Now taking ASA 81mg qday and labetolol 300mg BID. Has close outpatient followup. Condition at discharge: Good Disposition: DC-01 TO HOME OR SELFCARE - Discharge Diagnoses (1) Chronic hypertension affecting Status: Acute Plan - Discharge Medications Prescriptions: Labetalol HCl [Labetalol 300mg TAB] 300 mg PO BID #60 tablet - Provider Discharge Summary Activity: other (reduce activity if possible) Diet: routine Instructions: routine Additional instructions: [] Smoking cessation referral if applicable(refer to patient education folder for contact #) [] Refer to [facility] Booklet Call your doctor immediately for: * Fever > 100.5 * Heavy vaginal bleeding ( >1 pad per hour) * Severe persistent headache * Shortness of breath * Reddened, hot, painful area to leg or breast * Drainage or odor from incision. * Keep incision clean and dry at all times and follow doctor's instructions regarding bathing/showering - Follow up plan Follow up: CHARLIE ARMSTRONG MD [Primary Care Provider] - 7 Days
--- NOTE | 2020-05-04 07:17 | Ultrasound Report ---
ULTRASOUND BIOPHYSICAL PROFILE INDICATION / CLINICAL INFORMATION: pain. COMPARISON: 04/30/2020 FINDINGS: Single live intrauterine . Posterior placenta is low-lying. MEASUREMENTS: - Biparietal Diameter = 4.99 cm = 21 weeks 1 day - Head Circumference = 18.8 cm = 21 weeks 1 day - Abdominal Circumference = 15.8 cm = 20 weeks 6 days - Femur Length = 3.7 cm = 21 weeks 4 days - Estimated Weight (in grams, if calculated): 408 g BREATHING MOVEMENT = 2 GROSS BODY MOVEMENT = 2 TONE = 2 QUALITATIVE AMNIOTIC FLUID VOLUME = 2 TOTAL BIOPHYSICAL SCORE = 8/8 AMNIOTIC FLUID INDEX (cm) = 12.3 cm PRESENTATION: Breech. HEART RATE (beats per minute): 141 IMPRESSION: 1. Single live intrauterine , gestational age is 21 weeks 1 day by ultrasound. 2. biophysical profile = 8/8 3. Posterior placenta is low-lying. Recommend continued follow-up at 28 weeks. 4. ALEXSANDRA measures 12.3 cm, within normal limits Signer Name: Tobin Guerin MD Signed: 05/04/2020 7:13 AM Workstation Name: [id number]
== END 2020-05-01 20:56 | disposition home or self-care (01) ==
LOC: TRG 11:37 → APU 11:38 → TRG 14:55 → LD 14:55
PROVIDERS: ADMIT Obstetrics & Gynecology; ATTEND Obstetrics & Gynecology
DX: O10.912 Unspecified pre-existing hypertension complicating pregnancy, second trimester (principal); Z20.822 Contact with and (suspected) exposure to COVID-19; O26.892 Other specified pregnancy related conditions, second trimester; R10.9 Unspecified abdominal pain; R10.2 Pelvic and perineal pain; O09.522 Supervision of elderly multigravida, second trimester; O99.332 Smoking (tobacco) complicating pregnancy, second trimester; F17.210 Nicotine dependence, cigarettes, uncomplicated; Z98.891 History of uterine scar from previous surgery; Z3A.22 22 weeks gestation of pregnancy
CPT/HCPCS: 36415; 59025; 76816; 76817; 81001; 82565; 83615; 84156; 84450; 84460; 84550; 85027; 86850; 86900; 86901; 96374; G0378; J0360; U0003; 76815; 76830; 96360

== ENCOUNTER 2020-05-24 12:57 | Observation (INO) | payer MEDICAID ==
[2020-05-24 14:01] LABS: Bilirubin,Urine NEG (Negative); Blood,Urine NEG (Negative); Color,Urine Yellow (Yellow); Mucus,Urine FEW /HPF; Protein,Urine <15 mg/dL mg/dL (Negative); Urobilinogen,Urine < 2.0 mg/dL (<2.0)
[2020-05-24] MEDS ORDERED: ACETAMINOPHEN 500 MG TAB PO ONE (14:17)
[2020-05-24] MEDS: LACTATED RINGERS 1,000 ML IV SCH ×2 (14:41→18:35)
[2020-05-24 15:10] LABS: Basophils # (Auto) 0.1 K/mm3 (0.0-0.1); Basophils % (Auto) 0.9 % (0.0-1.8); Eosinophils # (Auto) 0.2 K/mm3 (0.0-0.4); Eosinophils % (Auto) 1.3 % (0.0-4.3); Hematocrit 32.8 % (30.3-42.9); Hemoglobin 10.9 gm/dl (10.1-14.3); Lymphocytes # (Auto) 1.7 K/mm3 (1.2-5.4); Lymphocytes % (Auto) 15.1 % (13.4-35.0); Mean Corpuscular HGB Conc 33 % (30-34); Mean Corpuscular Volume 84 fl (79-97); Monocytes # (Auto) 0.7 K/mm3 (0.0-0.8); Monocytes % (Auto) 6.2 % (0.0-7.3); Platelet Count 206 K/mm3 (140-440); Red Blood Count 3.91 M/mm3 (3.65-5.03); Red Cell Distribution Width 13.8 % (13.2-15.2)
[2020-05-24 15:37] LABS: Alanine Aminotransferase 23 units/L (7-56); Albumin 3.2 g/dL (3.9-5); Blood Urea Nitrogen 9 mg/dL (7-17); Calcium 8.9 mg/dL (8.4-10.2); Hemolysis Index 414
[2020-05-24 15:38] LABS: BUN/Creatinine Ratio 15
--- NOTE | 2020-05-24 16:57 | History and Physical Report ---
History of Present Illness Date of examination: 05/24/20 Chief complaint: BHATTI, fatigue, LUQ pain History of present illness: 39 yo at 25w4d c/b Chron's disease (no meds), A neg (needs Rhogam at 28 weeks), Chronic hypertension on labetolol 300mg q8hrs (missed afternoon dose), asthma, prior c/s x 3, AMA, current smoker, reported hx of enlarged heart in 2019 (needs cardiology follow up), Class III Obesity presenting with BHATTI, fatigue, rectal bleeding, LUQ pain. Patient reports pain is similar to hx of Chrons flairs. Past History Past Medical History: hypertension, other (chron's disease, obesity) Past Surgical History: section (x3) Family/Genetic History: hypertension, other (breast CA) Social history: smoking - Obstetrical History : 6 Para: 3 Hx # Term Pregnancies: 3 Spontaneous Abortions: 2 Number of Living Children: 3 Medications and Allergies Allergies Allergy/AdvReac Type Severity Reaction Status Date / Time Penicillins Allergy Rash Verified 04/13/20 12:20 Home Medications Medication Instructions Recorded Confirmed Last Taken Type Labetalol HCl [Labetalol 300mg TAB] 300 mg PO BID #60 tablet 05/01/20 Unknown Rx Active Meds: Active Medications Lactated Ringer's (Lactated Ringers) 1,000 mls @ 125 mls/hr IV DIRECT BRAULIO Last Admin: 05/24/20 14:41 Dose: 125 mls/hr Documented by: Review of Systems All systems: negative (expect HPI) - Vital Signs Vital signs: Vital Signs Temp Pulse Resp BP 98.5 F 72 20 137/76 05/24/20 13:23 05/24/20 13:23 05/24/20 13:23 05/24/20 13:23 Temp Pulse Resp BP Pulse Ox 98.5 F 73 20 131/75 05/24/20 13:23 05/24/20 16:50 05/24/20 14:29 05/24/20 16:50 - Physical Exam Cardiovascular: Regular rate Lungs: Positive: Clear to auscultation, Normal air movement Abdomen: Positive: normal appearance, normal bowel sounds, other (obese) - Obstetrical FHR: category 1 Uterine Contraction Monitor Mode: External Results Result Diagrams: 05/24/20 Unknown 05/24/20 Unknown Abnormal lab results 05/24/20 05/24/20 Range/Units Unknown Unknown WBC 11.3 H (4.5-11.0) K/mm3 Seg Neutrophils % 76.5 H (40.0-70.0) % Seg Neutrophils # 8.6 H (1.8-7.7) K/mm3 Sodium 132 L (137-145) mmol/L Potassium 5.6 H (3.6-5.0) mmol/L AST 48 H (5-40) units/L Albumin 3.2 L (3.9-5) g/dL All other labs normal. Assessment and Plan - Patient Problems (1) Acute Crohn's disease Current Visit: Yes Status: Acute Qualifiers: Digestive disease complication type: with rectal bleeding Qualified Code(s): K50.911 - Crohn's disease, unspecified, with rectal bleeding Plan to address problem: Concern for acute Chrons flair. Patient with hx of Chron's disease. Currently on meds medication. Also with rectal bleeding today. --Consult Hospitalist for further management of possible flair (2) Chronic hypertension affecting Current Visit: No Status: Acute Plan to address problem: LFTs mildly elevated, but not double. Otherwise PIH labs wnl. Patient late on 2nd dose labetolol --Increase labetolol to 400mg q8hr, additional 100mg now --Repeat 24H TP --Continue to monitor for s/sx of preeclampsia
--- NOTE | 2020-05-24 22:31 | Consultation ---
History of Present Illness - Reason for Consult Consult date: 05/24/20 Gi bleed, hx of cronh's disease - History of Present Illness 39 yo at 25w4d c/b Chron's disease (no meds), A neg (needs Rhogam at 28 weeks), Chronic hypertension on labetolol 300mg q8hrs (missed afternoon dose), asthma, prior c/s x 3, AMA, current smoker, reported hx of enlarged heart in 2019 (needs cardiology follow up), Class III Obesity presenting with BHATTI, fatigue, rectal bleeding, LUQ pain. Patient reports pain is similar to hx of Chrons flairs. Past History Past Medical History: hypertension Past Surgical History: Social history: smoking Family history: no significant family history Medications and Allergies Allergies Allergy/AdvReac Type Severity Reaction Status Date / Time Penicillins Allergy Rash Verified 05/24/20 18:49 Home Medications Medication Instructions Recorded Confirmed Last Taken Type Labetalol HCl [Labetalol 300mg TAB] 300 mg PO BID #60 tablet 05/01/20 05/24/20 05/24/20 Rx Aspirin EC [Halfprin EC] 1 tab PO DAILY 05/24/20 05/24/20 05/24/20 10:00 History Active Meds: Active Medications Lactated Ringer's (Lactated Ringers) 1,000 mls @ 125 mls/hr IV DIRECT BRAULIO Last Admin: 05/24/20 18:35 Dose: 125 mls/hr Documented by: Labetalol HCl (Labetalol 200 Mg Tab) 300 mg PO Q8H BRAULIO Review of Systems Constitutional: fatigue Eyes: left: blurred vision Ears, nose, mouth and throat: no epistaxis, no swelling in mouth Breasts: no skin changes Cardiovascular: high blood pressure, no phlebitis Respiratory: no pleurisy Gastrointestinal: abdominal pain, melena, heartburn, belching Genitourinary Female: dyspareunia Rectal: no hemorrhoids Musculoskeletal: no muscle weakness Integumentary: no rash Neurological: no head injury Psychiatric: anxiety, no hypersomnia Exam - Constitutional Vitals: Temp Pulse Resp BP Pulse Ox 98.3 F 64 18 144/66 05/24/20 18:00 05/24/20 22:18 05/24/20 18:00 05/24/20 22:18 General appearance: Present: mild distress, well-nourished - EENT Eyes: Present: PERRL ENT: hearing intact, clear oral mucosa - Neck Neck: Present: supple, normal ROM - Respiratory Respiratory effort: normal Respiratory: bilateral: CTA - Cardiovascular Heart Sounds: Present: S1 & S2. Absent: rub, click - Extremities Extremities: pulses symmetrical, No edema Peripheral Pulses: within normal limits - Abdominal General gastrointestinal: Present: soft, non-tender, non-distended, normal bowel sounds Female genitourinary: Present: normal - Integumentary Integumentary: Present: clear, warm, dry - Musculoskeletal Musculoskeletal: gait normal, strength equal bilaterally - Psychiatric Psychiatric: appropriate mood/affect, intact judgment & insight, cooperative - Neurologic Neurologic: CNII-XII intact, moves all extremities - Allied Health Allied health notes reviewed: nursing Results - Labs CBC & Chem 7: 05/24/20 Unknown 05/24/20 Unknown Labs: Abnormal lab results 05/24/20 05/24/20 Range/Units Unknown Unknown WBC 11.3 H (4.5-11.0) K/mm3 Seg Neutrophils % 76.5 H (40.0-70.0) % Seg Neutrophils # 8.6 H (1.8-7.7) K/mm3 Sodium 132 L (137-145) mmol/L Potassium 5.6 H (3.6-5.0) mmol/L AST 48 H (5-40) units/L Albumin 3.2 L (3.9-5) g/dL Assessment and Plan - Patient Problems (1) Acute Crohn's disease Current Visit: Yes Status: Acute Qualifiers: Digestive disease complication type: with rectal bleeding Qualified Code(s): K50.911 - Crohn's disease, unspecified, with rectal bleeding Plan to address problem: start solumedro 60mg q hrs GI consult Monitor H/h (2) Chronic hypertension affecting Current Visit: No Status: Acute Plan to address problem: Monitor blood pressure Continue antihypertensive
[2020-05-25] MEDS ORDERED: methylPREDNISolone Sod Succinate 125 MG/2 ML INJ IV SCH (06:00)
[2020-05-25] MEDS ORDERED: ALUM-MAG HYDROXIDE-SIMETHICONE 200-200-20MG/5ML ORAL LIQD 30 ML PO PRN (07:35)
[2020-05-25] MEDS ORDERED: hydrALAZINE 20 MG/1 ML INJ IV PRN ×2 (07:35→08:00)
--- NOTE | 2020-05-25 08:03 | Gastroenterology Consultation ---
History of Present Illness - Reason for Consult Consult date: 05/25/20 Crohn's flare Requesting physician: ROGER QUICK - History of Present Illness Is a pleasant 39-year-old female who is currently presents with rectal bleeding She reports having 3 soft and somewhat loose bowel movements daily with blood in each bowel movement she reports seeing bright red blood and clots therefore she came in for further evaluation She reports having been diagnosed with Crohn's disease approximately 10 years ago. However she lacked insurance and so therefore was not being managed and has not any medications She reports really not having many flares in the decade since being diagnosed She does report continuing to smoke about 1/3-1/4 of a pack a day She reports the rectal bleeding associate with mild lower abdominal cramping pain when she has a bowel movement however otherwise she does not have abdominal pain. The only other associated symptom is acid reflux for the past few weeks. She denies generalized abdominal pain currently. No fevers no chills. She is asking if she can eat since she has been n.p.o. and is hungry Obtained/updated/reviewed patient's current medications Past History Past Medical History: hypertension, other (Crohn's) Past Surgical History: Social history: smoking Family history: no significant family history Medications and Allergies Allergies Allergy/AdvReac Type Severity Reaction Status Date / Time Penicillins Allergy Rash Verified 05/24/20 18:49 Home Medications Medication Instructions Recorded Confirmed Last Taken Type Labetalol HCl [Labetalol 300mg TAB] 300 mg PO BID #60 tablet 05/01/20 05/24/20 05/24/20 Rx Aspirin EC [Halfprin EC] 1 tab PO DAILY 05/24/20 05/24/20 05/24/20 10:00 History Active Meds: Active Medications Al Hydrox/Mg Hydrox/Simethicone (Alum-Mag Hydroxide-Simethicone [id number]/5ml Oral Liqd 30 Ml) 15 ml PO Q4H PRN PRN Reason: Indigestion Last Admin: 05/25/20 08:02 Dose: 15 ml Documented by: Hydralazine HCl (Hydralazine 20 Mg/1 Ml Inj) 5 mg IV Q10MIN PRN PRN Reason: Blood Pressure Lactated Ringer's (Lactated Ringers) 1,000 mls @ 125 mls/hr IV DIRECT BRAULIO Last Admin: 05/24/20 18:35 Dose: 125 mls/hr Documented by: Labetalol HCl (Labetalol 200 Mg Tab) 300 mg PO Q8H [facility] Last Admin: 05/25/20 06:13 Dose: 300 mg Documented by: Methylprednisolone Sodium Succinate (Methylprednisolone Sod Succinate 125 Mg/2 Ml Inj) 60 mg IV Q8HR [facility] Last Admin: 05/25/20 06:17 Dose: 60 mg Documented by: Review of Systems - Review of Systems All systems: negative (10 Systems reviewed and negative except as mentioned above in the history of present illness) Exam - Constitutional Vital Signs: Temp Pulse Resp BP Pulse Ox 98.0 F 65 18 144/82 05/25/20 03:25 05/25/20 07:48 05/24/20 18:00 05/25/20 07:48 General appearance: no acute distress - EENT Eyes: EOM intact ENT: hearing intact - Neck Neck: supple - Respiratory Respiratory effort: normal Respiratory: bilateral: CTA - Cardiovascular Rhythm: regular - Gastrointestinal General gastrointestinal: Present: other (Enlarged uterus palpated and tarah reciated. Abdomen otherwise soft positive bowel sounds) - Integumentary Integumentary: Present: dry - Neurologic Neurological: alert and oriented x3 - Psychiatric Psychiatric: appropriate mood/affect - Labs CBC & Chem 7: 05/24/20 Unknown 05/24/20 Unknown Lab Results: Laboratory Results - last 24 hr 05/24/20 05/24/20 05/24/20 Unknown Unknown Unknown WBC 11.3 H RBC 3.91 Hgb 10.9 Hct 32.8 MCV 84 MCH 28 MCHC 33 RDW 13.8 Plt Count 206 Lymph % (Auto) 15.1 [place] % (Auto) 6.2 Eos % (Auto) 1.3 Baso % (Auto) 0.9 Lymph # (Auto) 1.7 [place] # (Auto) 0.7 Eos # (Auto) 0.2 Baso # (Auto) 0.1 Seg Neutrophils % 76.5 H Seg Neutrophils # 8.6 H Sodium 132 L Potassium 5.6 H Chloride 101.1 Carbon Dioxide 24 Anion Gap 13 BUN 9 Creatinine 0.6 Estimated GFR > 60 BUN/Creatinine Ratio 15 Glucose 74 Calcium 8.9 Total Bilirubin < 0.20 AST 48 H ALT 23 Alkaline Phosphatase 86 Total Protein 6.4 Albumin 3.2 L Albumin/Globulin Ratio 0.9 Urine Color Yellow Urine Turbidity Clear Urine pH 6.0 Ur Specific [place] 1.019 Urine Protein <15 mg/dl Urine Glucose (UA) Neg Urine Ketones Neg Urine Blood Neg Urine Nitrite Neg Urine Bilirubin Neg Urine Urobilinogen < 2.0 Ur Leukocyte Esterase Neg Urine WBC (Auto) 1.0 Urine RBC (Auto) 2.0 U Epithel Cells (Auto) 4.0 Urine Mucus Few Assessment and Plan I sent a differential diagnosis is mild Crohn's flare. Also differential diagnosis is infectious etiology such as clustering difficile colitis. Given that Crohn's is most likely, will start her on moderate dose of prednisone. I recommend prednisone 20 mg by mouth daily for 2 weeks, then 10 mg daily for 2 weeks, then 5 mg daily for 2 weeks Additionally I will order C. difficile testing to ensure no underlying C. difficile colitis I stressed to the patient the importance of tobacco cessation both in terms of tobacco use exacerbating Crohn's as well as due to her status From GI standpoint patient may be started on a diet From GI standpoint as long as patient is tolerating the diet she can be discharged with outpatient follow-up, she already has an existing appointment with our office Regarding her acid reflux, may use PPI if symptoms are severe enough though tobacco cessation should help with treating acid reflux - Patient Problems (1) Acute Crohn's disease Current Visit: Yes Status: Acute Qualifiers: Digestive disease complication type: with rectal bleeding Qualified Code(s): K50.911 - Crohn's disease, unspecified, with rectal bleeding (2) Rectal bleeding Current Visit: Yes Status: Acute
[2020-05-25 09:01] LABS: Hematocrit 32.2 % (30.3-42.9); Hemoglobin 10.8 gm/dl (10.1-14.3)
--- NOTE | 2020-05-25 09:20 | Progress Note ---
Subjective - Subjective Date of service: 05/25/20 Interval history: GHTNon labetalol stable crohn's: improved on steroids tolerating PO no OB intervention BP's <160/110 plan for d/c to home after completion of 24 hour urine CSachi Parsons MD Objective - Vital Signs Vital Signs: Vital Signs - 12hr 05/24/20 05/24/20 05/24/20 21:48 22:18 22:48 Temperature Pulse Rate 67 64 74 Respiratory Rate Blood Pressure 138/67 144/66 154/91 O2 Sat by Pulse Oximetry 05/24/20 05/24/20 05/24/20 22:51 23:18 23:25 Temperature 98.4 F Pulse Rate 74 67 Respiratory Rate Blood Pressure 154/91 134/66 O2 Sat by Pulse Oximetry 05/24/20 05/25/20 05/25/20 23:48 00:18 00:48 Temperature Pulse Rate 75 71 64 Respiratory Rate Blood Pressure 93/51 111/55 99/52 O2 Sat by Pulse Oximetry 05/25/20 05/25/20 05/25/20 01:18 01:48 02:18 Temperature Pulse Rate 84 69 70 Respiratory Rate Blood Pressure 105/55 115/66 106/59 O2 Sat by Pulse Oximetry 05/25/20 05/25/20 05/25/20 02:48 03:18 03:25 Temperature 98.0 F Pulse Rate 64 62 Respiratory Rate Blood Pressure 126/63 137/78 O2 Sat by Pulse Oximetry 05/25/20 05/25/20 05/25/20 03:48 04:18 04:48 Temperature Pulse Rate 71 68 63 Respiratory Rate Blood Pressure 119/68 120/72 119/65 O2 Sat by Pulse Oximetry 05/25/20 05/25/20 05/25/20 05:18 05:48 06:13 Temperature Pulse Rate 71 64 64 Respiratory Rate Blood Pressure 126/69 141/78 141/78 O2 Sat by Pulse Oximetry 05/25/20 05/25/20 05/25/20 06:18 06:22 06:48 Temperature Pulse Rate 63 62 70 Respiratory Rate Blood Pressure 174/81 165/73 178/90 O2 Sat by Pulse Oximetry 05/25/20 05/25/20 05/25/20 06:55 07:18 07:30 Temperature 98.3 F Pulse Rate 67 71 Respiratory 16 Rate Blood Pressure 164/92 177/86 O2 Sat by Pulse Oximetry 05/25/20 05/25/20 05/25/20 07:48 08:03 08:08 Temperature Pulse Rate 65 71 68 Respiratory Rate Blood Pressure 144/82 O2 Sat by Pulse 98 98 Oximetry 05/25/20 05/25/20 05/25/20 08:13 08:18 08:23 Temperature Pulse Rate 70 75 69 Respiratory Rate Blood Pressure 174/87 O2 Sat by Pulse 98 98 98 Oximetry 05/25/20 05/25/20 05/25/20 08:28 08:33 08:41 Temperature Pulse Rate 69 72 74 Respiratory Rate Blood Pressure 162/84 O2 Sat by Pulse 97 99 98 Oximetry 05/25/20 05/25/20 05/25/20 08:46 08:48 08:51 Temperature Pulse Rate 70 67 69 Respiratory Rate Blood Pressure 163/85 O2 Sat by Pulse 99 99 Oximetry 05/25/20 05/25/20 05/25/20 08:56 09:01 09:06 Temperature Pulse Rate 67 70 72 Respiratory Rate Blood Pressure O2 Sat by Pulse 96 96 98 Oximetry 05/25/20 05/25/20 05/25/20 09:11 09:16 09:18 Temperature Pulse Rate 66 64 69 Respiratory Rate Blood Pressure 163/75 O2 Sat by Pulse 97 96 Oximetry - Labs Labs: Abnormal Labs 05/24/20 05/24/20 Unknown Unknown WBC 11.3 H Seg Neutrophils % 76.5 H Seg Neutrophils # 8.6 H Sodium 132 L Potassium 5.6 H AST 48 H Albumin 3.2 L Laboratory Results - last 24 hr 05/24/20 05/24/20 05/24/20 Unknown Unknown Unknown WBC 11.3 H RBC 3.91 Hgb 10.9 Hct 32.8 MCV 84 MCH 28 MCHC 33 RDW 13.8 Plt Count 206 Lymph % (Auto) 15.1 Blount % (Auto) 6.2 Eos % (Auto) 1.3 Baso % (Auto) 0.9 Lymph # (Auto) 1.7 [place]ount # (Auto) 0.7 Eos # (Auto) 0.2 Baso # (Auto) 0.1 Seg Neutrophils % 76.5 H Seg Neutrophils # 8.6 H Sodium 132 L Potassium 5.6 H Chloride 101.1 Carbon Dioxide 24 Anion Gap 13 BUN 9 Creatinine 0.6 Estimated GFR > 60 BUN/Creatinine Ratio 15 Glucose 74 Calcium 8.9 Total Bilirubin < 0.20 AST 48 H ALT 23 Alkaline Phosphatase 86 Total Protein 6.4 Albumin 3.2 L Albumin/Globulin Ratio 0.9 Urine Color Yellow Urine Turbidity Clear Urine pH 6.0 Ur Specific [place] 1.019 Urine Protein <15 mg/dl Urine Glucose (UA) Neg Urine Ketones Neg Urine Blood Neg Urine Nitrite Neg Urine Bilirubin Neg Urine Urobilinogen < 2.0 Ur Leukocyte Esterase Neg Urine WBC (Auto) 1.0 Urine RBC (Auto) 2.0 U Epithel Cells (Auto) 4.0 Urine Mucus Few 05/25/20 08:11 WBC RBC Hgb 10.8 Hct 32.2 MCV MCH MCHC RDW Plt Count Lymph % (Auto) Blount % (Auto) Eos % (Auto) Baso % (Auto) Lymph # (Auto) Blount # (Auto) Eos # (Auto) Baso # (Auto) Seg Neutrophils % Seg Neutrophils # Sodium Potassium Chloride Carbon Dioxide Anion Gap BUN Creatinine Estimated GFR BUN/Creatinine Ratio Glucose Calcium Total Bilirubin AST ALT Alkaline Phosphatase Total Protein Albumin Albumin/Globulin Ratio Urine Color Urine Turbidity Urine pH Ur Specific [place] Urine Protein Urine Glucose (UA) Urine Ketones Urine Blood Urine Nitrite Urine Bilirubin Urine Urobilinogen Ur Leukocyte Esterase Urine WBC (Auto) Urine RBC (Auto) U Epithel Cells (Auto) Urine Mucus
[2020-05-25] MEDS ORDERED: methylPREDNISolone Sod Succinate 40 MG/1 ML INJ IV SCH (10:00)
[2020-05-25] MEDS ORDERED: predniSONE 20 MG TAB PO SCH (10:00)
--- NOTE | 2020-05-25 13:47 | Discharge Summary ---
Providers - Providers Date of Admission: 05/24/20 13:16 Date of discharge: 05/25/20 Attending physician: JACKELYN WEAVER JR, MD 05/24/20 17:59 Consult to Physician [CONS] Stat Comment: Consulting Provider: BRIGIDA RUFFIN Physician Instructions: Reason For Exam: chrons flair, no meds 05/24/20 22:34 Consult to Physician [CONS] Urgent Comment: Consulting Provider: [facility] Physician Instructions: Reason For Exam: GI bleed Primary care physician: JACKELYN WEAVER JR, MD Hospitalization Condition at discharge: Stable Disposition: DC-01 TO HOME OR SELFCARE Plan - Discharge Medications Prescriptions: predniSONE 10 mg PO .TAPER #48 tab - Provider Discharge Summary Activity: routine Diet: routine Additional instructions: [] Smoking cessation referral if applicable(refer to patient education folder for contact #) [] Refer to [facility] Booklet Call your doctor immediately for: * Fever > 100.5 * Heavy vaginal bleeding ( >1 pad per hour) * Severe persistent headache * Shortness of breath * Reddened, hot, painful area to leg or breast * Drainage or odor from incision. * Keep incision clean and dry at all times and follow doctor's instructions regarding bathing/showering - Follow up plan Follow up: JACKELYN WEAVER JR, MD [Primary Care Provider] - 7 Days
[2020-05-25 14:39] LABS: Hematocrit 34.4 % (30.3-42.9); Hemoglobin 11.2 gm/dl (10.1-14.3)
--- NOTE | 2020-05-25 16:24 | Progress Note ---
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 Advised to continue labetalol --History of Crohn's disease; Management per GI --; management per INSPECTOR AIDE Medically stable for discharge Blood pressure now is 137/61 Patient advised to follow-up with primary care physician upon discharge Thank you for this consultation Will sign off History Interval history: I have seen and examined the patient at the bedside Patient's chart and medications reviewed Patient feels better blood pressures reasonable level No new complaints Vital signs noted Hospitalist Physical - Constitutional Vitals: Temp Pulse Resp BP Pulse Ox 98.6 F 75 18 162/79 99 05/25/20 12:30 05/25/20 15:57 05/25/20 12:30 05/25/20 15:57 05/25/20 09:26 General appearance: Present: no acute distress, well-nourished, obese - EENT Eyes: Present: PERRL, EOM intact - Neck Neck: Present: supple, normal ROM - Respiratory Respiratory effort: normal Respiratory: bilateral: diminished, negative: rales, rhonchi, wheezing - Cardiovascular Rhythm: regular Heart Sounds: Present: S1 & S2 - Extremities Extremities: no ischemia, No edema - Abdominal General gastrointestinal: soft, non-tender, normal bowel sounds, other ( uterus) - Integumentary Integumentary: Present: clear, warm - Psychiatric Psychiatric: appropriate mood/affect, cooperative - Neurologic Neurologic: CNII-XII intact, moves all extremities Results - Labs CBC & Chem 7: 05/25/20 14:20 05/24/20 Unknown Labs: Laboratory Last Values WBC 11.3 K/mm3 (4.5-11.0) H 05/24/20 Unknown RBC 3.91 M/mm3 (3.65-5.03) 05/24/20 Unknown Hgb 11.2 gm/dl (10.1-14.3) 05/25/20 14:20 Hct 34.4 % (30.3-42.9) 05/25/20 14:20 MCV 84 fl (79-97) 05/24/20 Unknown MCH 28 pg (28-32) 05/24/20 Unknown MCHC 33 % (30-34) 05/24/20 Unknown RDW 13.8 % (13.2-15.2) 05/24/20 Unknown Plt Count 206 K/mm3 (140-440) 05/24/20 Unknown Lymph % (Auto) 15.1 % (13.4-35.0) 05/24/20 Unknown Davis % (Auto) 6.2 % (0.0-7.3) 05/24/20 Unknown Eos % (Auto) 1.3 % (0.0-4.3) 05/24/20 Unknown Baso % (Auto) 0.9 % (0.0-1.8) 05/24/20 Unknown Lymph # (Auto) 1.7 K/mm3 (1.2-5.4) 05/24/20 Unknown Davis # (Auto) 0.7 K/mm3 (0.0-0.8) 05/24/20 Unknown Eos # (Auto) 0.2 K/mm3 (0.0-0.4) 05/24/20 Unknown Baso # (Auto) 0.1 K/mm3 (0.0-0.1) 05/24/20 Unknown Seg Neutrophils % 76.5 % (40.0-70.0) H 05/24/20 Unknown Seg Neutrophils # 8.6 K/mm3 (1.8-7.7) H 05/24/20 Unknown ESR 45 mm/Hr (0-20) 05/25/20 08:11 Sodium 132 mmol/L (137-145) L 05/24/20 Unknown Potassium 5.6 mmol/L (3.6-5.0) H 05/24/20 Unknown Chloride 101.1 mmol/L (98-107) 05/24/20 Unknown Carbon Dioxide 24 mmol/L (22-30) 05/24/20 Unknown Anion Gap 13 mmol/L 05/24/20 Unknown BUN 9 mg/dL (7-17) 05/24/20 Unknown Creatinine 0.6 mg/dL (0.6-1.2) 05/24/20 Unknown Estimated GFR > 60 ml/min 05/24/20 Unknown BUN/Creatinine Ratio 15 % 05/24/20 Unknown Glucose 74 mg/dL (65-100) 05/24/20 Unknown Calcium 8.9 mg/dL (8.4-10.2) 05/24/20 Unknown Total Bilirubin < 0.20 mg/dL (0.1-1.2) 05/24/20 Unknown AST 48 units/L (5-40) H 05/24/20 Unknown ALT 23 units/L (7-56) 05/24/20 Unknown Alkaline Phosphatase 86 units/L (35-129) 05/24/20 Unknown C-Reactive Protein 0.90 mg/dL (0.00-1.30) 05/25/20 08:11 Total Protein 6.4 g/dL (6.3-8.2) 05/24/20 Unknown Albumin 3.2 g/dL (3.9-5) L 05/24/20 Unknown Albumin/Globulin Ratio 0.9 % 05/24/20 Unknown Urine Color Yellow (Yellow) 05/24/20 Unknown Urine Turbidity Clear (Clear) 05/24/20 Unknown Urine pH 6.0 (5.0-7.0) 05/24/20 Unknown Ur Specific [place] 1.019 (1.003-1.030) 05/24/20 Unknown Urine Protein <15 mg/dl mg/dL (Negative) 05/24/20 Unknown Urine Glucose (UA) Neg mg/dL (Negative) 05/24/20 Unknown Urine Ketones Neg mg/dL (Negative) 05/24/20 Unknown Urine Blood Neg (Negative) 05/24/20 Unknown Urine Nitrite Neg (Negative) 05/24/20 Unknown Urine Bilirubin Neg (Negative) 05/24/20 Unknown Urine Urobilinogen < 2.0 mg/dL (<2.0) 05/24/20 Unknown Ur Leukocyte Esterase Neg (Negative) 05/24/20 Unknown Urine WBC (Auto) 1.0 /HPF (0.0-6.0) 05/24/20 Unknown Urine RBC (Auto) 2.0 /HPF (0.0-6.0) 05/24/20 Unknown U Epithel Cells (Auto) 4.0 /HPF (0-13.0) 05/24/20 Unknown Urine Mucus Few /HPF 05/24/20 Unknown Active Medications - Current Medications Current Medications: Generic Name Dose Route Start Last Admin Trade Name Freq PRN Reason Stop Dose Admin Al Hydrox/Mg Hydrox/Simethicone 15 ml 05/25/20 07:35 05/25/20 08:02 Alum-Mag Hydroxide-Simethicone 460-546-50nh/5ml Oral Liqd 30 Ml PO 15 ml Q4H PRN Administration Indigestion Hydralazine HCl 5 mg 05/25/20 08:00 Hydralazine 20 Mg/1 Ml Inj IV Q10MIN PRN Blood Pressure Lactated Ringer's 1,000 mls @ 125 mls/hr 05/24/20 13:15 05/24/20 18:35 Lactated Ringers IV 125 mls/hr DIRECT BRAULIO Administration Labetalol HCl 300 mg 05/24/20 22:00 05/25/20 13:58 Labetalol 200 Mg Tab PO 300 mg Q8H BRAULIO Administration Prednisone 20 mg 05/25/20 10:00 05/25/20 10:24 Prednisone 20 Mg Tab PO 20 mg QDAY BRAULIO Administration
[2020-05-25 17:58] VITALS: BP 154/67
[2020-05-25] MEDS ORDERED: hydrALAZINE 10 MG TAB PO SCH (22:00)
== END 2020-05-25 18:02 | disposition home or self-care (01) ==
LOC: TRG 12:57 → APU 12:58 → LD 13:16 → TRG 13:16 → LD 17:55
PROVIDERS: ADMIT Obstetrics & Gynecology; ATTEND Obstetrics & Gynecology
DX: O99.612 Diseases of the digestive system complicating pregnancy, second trimester (principal); K50.911 Crohn's disease, unspecified, with rectal bleeding; O10.912 Unspecified pre-existing hypertension complicating pregnancy, second trimester; O26.892 Other specified pregnancy related conditions, second trimester; R51.9 Headache, unspecified; O99.212 Obesity complicating pregnancy, second trimester; Z3A.25 25 weeks gestation of pregnancy; Z98.891 History of uterine scar from previous surgery; Z79.82 Long term (current) use of aspirin
CPT/HCPCS: 36415; 59025; 80053; 81001; 85014; 85018; 85025; 85652; 86140; 96361; 96374; G0378; J2930; J7120; J7512; 96360

== ENCOUNTER 2020-08-11 09:10 | Inpatient (IN) | payer MEDICAID ==
[2020-08-11] MEDS ORDERED: GENTAMICIN 80 MG in SODIUM CHLORIDE 0.9% 100 ML IV ONE (09:31)
[2020-08-11] MEDS ORDERED: FAMOTIDINE 20 MG/2 ML INJ IV ONE (09:36)
[2020-08-11] MEDS ORDERED: METOCLOPRAMIDE 10 MG/2 ML INJ IV ONE (09:36)
[2020-08-11] MEDS ORDERED: LACTATED RINGERS 1,000 ML IV SCH (09:45)
[2020-08-11] MEDS ORDERED: BICITRA ORAL LIQD 30ML PO SCH (10:00)
[2020-08-11] MEDS ORDERED: GENTAMICIN/NS 80 MG/100 ML 100 ML IV SCH (10:00)
[2020-08-11] MEDS ORDERED: OXYTOCIN DRIP 30 UNITS/500 ML BAG IV SCH ×2 (10:00→16:00)
[2020-08-11] MEDS ORDERED: FAMOTIDINE 20 MG/2 ML INJ IV SCH (10:00)
[2020-08-11] MEDS ORDERED: METOCLOPRAMIDE 10 MG/2 ML INJ IV SCH (10:00)
[2020-08-11] MEDS: LACTATED RINGERS 1,000 ML IV SCH ×2 (10:13→11:33)
--- NOTE | 2020-08-11 10:29 | History and Physical Report ---
History of Present Illness Date of examination: 08/11/20 Date of admission: 08/11/20 09:10 History of present illness: 39yo at 36w 6 d is for scheduled RTLCS due to [facility] recommendation for delivery. PT has CHTN requiring Labetalol 600mg TID and Procardia XL 30mg. Also, h/o C/S x 3. PT also for BTL. Tubal papers signed in June. RH neg- got Rhogam around 30 weeks. PT was also told by cardiology that she has cardiomegaly due to ventricular hypertrophy secondary to her HTN (report is pending). Past History Past Medical History: asthma (mild), heart disease ([facility]A notes h/o Cardiomegaly.), hypertension, other (Crohns- no meds, depression- no meds, anemia- iron) Past Surgical History: section (x 3) Social history: smoking - Obstetrical History Expected Date of Delivery: 09/02/20 Actual Gestation: 36 Week(s) 6 Day(s) : 6 Para: 3 Spontaneous Abortions: 1 Induced : 1 Number of Living Children: 3 Medications and Allergies Allergies Allergy/AdvReac Type Severity Reaction Status Date / Time Penicillins Allergy Rash Verified 08/11/20 09:29 Home Medications Medication Instructions Recorded Confirmed Last Taken Type Aspirin EC [Halfprin EC] 1 tab PO DAILY 05/24/20 06/30/20 06/29/20 History predniSONE 10 mg PO .TAPER #48 tab 05/25/20 06/30/20 Unknown Rx Labetalol HCl [Labetalol 300mg TAB] 400 mg PO BID 06/30/20 06/30/20 06/29/20 History Active Meds: Active Medications Citric Acid/Sodium Citrate (Bicitra Oral Liqd 30ml) 30 ml PO ONCE BRAULIO Stop: 08/11/20 19:00 Famotidine (Famotidine 20 Mg/2 Ml Inj) 20 mg IV ONCE BRAULIO Stop: 08/11/20 19:00 Lactated Ringer's (Lactated Ringers) 1,000 mls @ 2,250 mls/hr IV PREOP BRAULIO Stop: 08/12/20 10:27 Last Admin: 08/11/20 10:13 Dose: 999 mls/hr Documented by: Clindamycin HCl (Cleocin 900 Mg/50 Ml) 900 mg in 50 mls @ 100 mls/hr IV PREOP NR; Protocol Stop: 08/11/20 19:00 Oxytocin/Sodium Chloride (Pitocin/Ns 30 Unit/500ml) 30 units in 500 mls @ 0 mls/hr IV TITR BRAULIO; Protocol Gentamicin Sulfate/Sodium Chloride (Gentamicin/Ns 80 Mg/100 Ml) 100 mls @ 200 mls/hr IV PREOP BRAULIO Stop: 08/11/20 19:00 Metoclopramide HCl (Metoclopramide 10 Mg/2 Ml Inj) 10 mg IV ONCE BRAULIO Stop: 08/11/20 19:00 Review of Systems All systems: negative (except HPI) - Vital Signs Vital signs: Vital Signs Pulse BP Pulse Ox 74 143/73 100 08/11/20 09:54 08/11/20 09:54 08/11/20 09:54 Temp Pulse Resp BP Pulse Ox 75 143/73 100 08/11/20 10:19 08/11/20 09:54 08/11/20 10:19 - Physical Exam Cardiovascular: Regular rate Lungs: Positive: Clear to auscultation, Normal air movement Abdomen: Positive: normal appearance, soft. Negative: tenderness Results Result Diagrams: 08/11/20 10:20 All other labs normal. Assessment and Plan - Patient Problems (1) Previous section Current Visit: Yes Status: Acute Plan to address problem: PT is for RLTCS/BTL at 36.6 weeks today due to [facility] recommendation for delivery due to her significant CHTN hx requiring significant medication to control it. Patient fully consented for the surgery. Risks, benefits, and alternatives were all discussed with the patient including risk of bleeding, infection, and potential for injury. Patient understands and accepts these risks. Patient agr ees to proceed with surgery. All questions were answered. (2) Sterilization Current Visit: Yes Status: Acute Plan to address problem: PT made aware of the approximately 05/999 risk of BTL failure. She understands and accepts this. (3) Chronic hypertension affecting Current Visit: No Status: Acute Plan to address problem: Will cont her meds postop.
[2020-08-11 10:38] LABS: Basophils # (Auto) 0.1 K/mm3 (0.0-0.1); Basophils % (Auto) 0.7 % (0.0-1.8); Eosinophils # (Auto) 0.1 K/mm3 (0.0-0.4); Eosinophils % (Auto) 1.4 % (0.0-4.3); Hematocrit 35.4 % (30.3-42.9); Hemoglobin 11.8 gm/dl (10.1-14.3); Lymphocytes # (Auto) 1.7 K/mm3 (1.2-5.4); Lymphocytes % (Auto) 18.1 % (13.4-35.0); Mean Corpuscular HGB Conc 33 % (30-34); Mean Corpuscular Volume 86 fl (79-97); Monocytes # (Auto) 0.6 K/mm3 (0.0-0.8); Monocytes % (Auto) 6.4 % (0.0-7.3); Platelet Count 179 K/mm3 (140-440); Red Blood Count 4.13 M/mm3 (3.65-5.03); Red Cell Distribution Width 14.2 % (13.2-15.2)
--- NOTE | 2020-08-11 10:44 | Anesthesia Consultation ---
Anesthesia Consult and Med Hx Date of service: 08/11/20 - Airway Anesthetic Teeth Evaluation: Good ROM Head & Neck: Adequate Mental/Hyoid Distance: Adequate Mallampati Class: Class II Intubation Access Assessment: Probably Good - Pulmonary Exam CTA: Yes - Cardiac Exam Cardiac Exam: RRR - Pre-Operative Health Status ASA Pre-Surgery Classification: ASA3 Proposed Anesthetic Plan: Spinal - Pulmonary Hx Asthma: Yes (last asthma attack years ago, has inhaler) COPD: No Hx Pneumonia: No - Cardiovascular System Hx Hypertension: Yes (CHTN) - Central Nervous System Hx Seizures: No Hx Psychiatric Problems: Yes (depression, took med but stopped when ) - Endocrine Hx Renal Disease: No Hx End Stage Renal Disease: No Hx Hypothyroidism: No Hx Hyperthyroidism: No - Hematic Hx Anemia: No Hx Sickle Cell Disease: No - Other Systems Hx Alcohol Use: No Hx Obesity: Yes
--- NOTE | 2020-08-11 10:44 | Anesthesia Day of Surgery ---
Anesthesia Day of Surgery - Day of Surgery Patient Examined: Yes Patient H&P Reviewed: Yes Patient is NPO: Yes
[2020-08-11] MEDS ORDERED: SODIUM CHLORIDE 0.9% 250ML 250 ML ONE (13:20)
--- NOTE | 2020-08-11 15:50 | Procedure Note ---
OB Delivery Note - Delivery Date of Delivery: 08/11/20 Surgeon: DIANE HUTCHINS Estimated blood loss: other (653 cc) - Section Preop diagnosis: repeat , desires sterilization, other (Chronic hypertension) Postop diagnosis: same section procedure: section, repeat low transverse, bilateral tubal ligation Disposition: PACU Complications: none Narrative: Indication: This is a 39-year-old -0-2-3 at 36 weeks and 6 days who was recommended to be delivered by [facility] due to significant chronic hypertension requiring significant medical treatment for control. Patient also desires sterilization. As result patient is for her repeat low-transverse and bilateral tubal ligation. Findings: Uterus had significant scarring of omentum and peritoneal tissue to the anterior side of the uterus. This required lysis during the surgery. Left tube and ovary appeared to be within normal limits. The right tube was moderately adhered to the fallopian tube but was able to be for the tubal ligation on that side. Clear fluid. No nuchal cord. Procedure: Patient taken to the operating room and prepped and draped in the usual fashion. Pfannenstiel skin incision was made and carried down to the underlying fascia. Fascia was incised and the incision was extended bilaterally. Rectus fascia dissected off the rectus muscle both superiorly and inferiorly. Peritoneum identified tented up and entered. Peritoneal incision extended superiorly and inferiorly with good visualization of the bladder. Lysis of adhesions including creation of the bladder flap was done. Bladder blade was placed. Uterine incision was made and the incision was extended bilaterally. The baby was delivered in the typical vertex fashion. Baby bulb suctioned at the incision site and again after delivery. Cord was delayed clamped and cut and handed off to waiting team. The placenta was delivered spontaneously. The uterus was exteriorized and cleared of all clots and debris. Uterine incision closed with 0 Vicryl in a running locked fashion followed by a second imbricating layer of 0 Vicryl. Good hemostasis was noted after a few additional [id number] stitches. Her urine was clear. Attention was turned to the tubal ligation. Both tubes were ligated using 0 chromic x2 on each side. This was done successfully and without difficulty on both sides with good hemostasis noted afterwards, even after the uterus, tubes and ovaries were back in the abdominal cavity. The segments of tubes on each side were sent to pathology. Uterus tubes and ovaries were returned to the abdominal cavity. Gutters were cleared of all clots and debris. Good hemostasis noted. Interceed placed over the uterine incision and over the lower uterine segment in the midline. Attention was turned to the rectus fascia which was reapproximated with 0 Vicryl in a running fashion. Subcutaneous tissue was irrigated and reapproximated with 2-0 Vicryl in a running fashion. Skin was closed with 4-0 Vicryl in a subcuticular fashion followed by Dermabond. The procedure was concluded at this point and the patient tolerated the procedure well. All instrument and lap counts were correct. - A at 1 minute: 8 at 5 minutes: 9 Infant Gender: Female
[2020-08-11] MEDS ORDERED: NALOXONE 0.4 MG/1 ML INJ IV PRN (16:00)
[2020-08-11] MEDS ORDERED: WITCH HAZEL/ GLYCERIN PAD TP PRN (16:00)
[2020-08-11] MEDS ORDERED: LANOLIN/ZINC/DIMETHICONE (LANSINOH) 7 GM TP PRN (16:00)
[2020-08-11] MEDS ORDERED: KETOROLAC 30 MG/1 ML INJ IV PRN (16:00)
[2020-08-11] MEDS ORDERED: PHENYLEPHRINE 10 MG/1 ML INJ SDV ONE (16:12)
[2020-08-11] MEDS ORDERED: dexAMETHasone 20 MG/5 ML VIAL ONE (16:12)
[2020-08-11] MEDS ORDERED: KETOROLAC 30 MG/1 ML INJ ONE (16:12)
[2020-08-11] MEDS ORDERED: ONDANSETRON 4 MG/2 ML INJ ONE (16:12)
[2020-08-11] MEDS ORDERED: SODIUM CHLORIDE 0.9% 100 ML ONE (16:12)
[2020-08-11] MEDS ORDERED: BUPIVACAINE/PF (0.5%) 5 MG/1 ML 30 ML VIAL INFILTRATI ONE (16:12)
[2020-08-11] MEDS ORDERED: SIMETHICONE 80 MG CHEW TAB PO PRN (16:30)
[2020-08-11] MEDS ORDERED: ONDANSETRON 4 MG/2 ML INJ IV PRN (16:30)
[2020-08-11] MEDS: oxyCODONE /ACETAMINOPHEN 5-325MG TAB PO PRN (19:20)
[2020-08-11] MEDS ORDERED: MAGNESIUM HYDROXIDE (MOM) ORAL LIQD UDC PO PRN (22:00)
[2020-08-11] MEDS ORDERED: SENNOSIDES 8.6 MG TAB PO PRN (22:00)
[2020-08-12] MEDS: oxyCODONE /ACETAMINOPHEN 5-325MG TAB PO PRN ×4 (01:32→21:54)
[2020-08-12] MEDS ORDERED: TETANUS,DIPH,PERTUSS(ACELL) VACCINE 0.5 ML SYRINGE IM ONE (06:00)
[2020-08-12 08:02] LABS: Hematocrit 32.5 % (30.3-42.9); Hemoglobin 10.7 gm/dl (10.1-14.3)
--- NOTE | 2020-08-12 09:13 | Progress Note ---
Assessment and Plan PPD # 1 A: S/P Repeat LTCS with BTL CHTN with uncontrolled b/p P:Continue routine pp care Increase Procardia XL to 60mg QD Hospitalist consult Encourage ambulation Dr campos consulted Subjective - Subjective Date of service: 08/12/20 Principal diagnosis: s/p Repeat LTCS with BTL Patient reports: appetite normal, voiding normally, pain well controlled, flatus, ambulating normally, other (Denies pacheco, visual problems, or epigastric pain) : doing well, bottle feeding Objective - Vital Signs Latest vital signs: Vital Signs Temp Pulse Resp BP BP Pulse Ox 08/12/20 07:57 98.0 F 74 18 168/93 94 08/12/20 06:31 18 08/12/20 06:26 72 178/89 08/12/20 05:17 98.3 F 67 20 165/91 99 08/12/20 02:32 18 08/12/20 01:32 18 08/12/20 01:30 97.7 F 77 20 166/92 97 08/11/20 22:49 18 08/11/20 22:19 18 08/11/20 22:18 82 189/100 08/11/20 22:17 99.1 F 82 20 189/100 95 08/11/20 20:20 18 08/11/20 19:20 18 08/11/20 17:30 98.1 F 60 20 170/88 100 08/11/20 17:25 170/88 08/11/20 17:05 97.8 F 58 L 15 157/87 99 08/11/20 16:55 60 15 126/62 99 08/11/20 16:40 59 L 14 118/59 99 08/11/20 16:25 60 13 115/58 99 08/11/20 16:15 59 L 14 117/63 99 08/11/20 16:10 60 14 120/57 100 08/11/20 16:05 63 15 123/57 98 08/11/20 16:00 61 14 116/58 100 08/11/20 15:57 64 13 111/51 99 08/11/20 15:53 97.4 F L 62 15 99 08/11/20 13:31 67 156/81 08/11/20 13:29 68 99 08/11/20 13:24 70 100 08/11/20 13:19 78 99 08/11/20 13:16 71 161/86 08/11/20 13:14 74 100 08/11/20 13:09 70 100 08/11/20 13:04 80 99 08/11/20 13:01 72 155/86 08/11/20 12:59 74 99 08/11/20 12:54 66 99 08/11/20 12:49 72 97 08/11/20 12:46 67 156/86 08/11/20 12:44 67 99 08/11/20 12:39 68 100 08/11/20 12:37 68 165/88 08/11/20 12:35 68 168/85 08/11/20 12:34 70 100 08/11/20 12:26 78 99 08/11/20 12:21 62 99 08/11/20 12:16 80 144/77 98 08/11/20 12:11 73 96 08/11/20 12:06 67 98 08/11/20 12:01 66 99 08/11/20 11:56 67 99 08/11/20 11:53 67 125/70 08/11/20 11:51 72 99 08/11/20 11:46 81 98 08/11/20 11:41 80 100 08/11/20 11:36 81 99 08/11/20 11:31 83 98 08/11/20 11:26 74 98 08/11/20 11:21 79 99 08/11/20 11:16 71 99 08/11/20 11:04 157 H 73 L 08/11/20 10:59 163 H 75 L 08/11/20 10:54 155 H 74 L 08/11/20 10:49 78 75 L 08/11/20 10:48 102 H 79 L 08/11/20 10:44 75 99 08/11/20 10:39 80 100 08/11/20 10:34 75 100 08/11/20 10:29 71 100 08/11/20 10:24 73 100 08/11/20 10:19 75 100 08/11/20 10:14 73 100 08/11/20 10:09 76 100 08/11/20 10:04 74 100 08/11/20 09:59 80 100 08/11/20 09:54 79 143/73 100 08/11/20 09:50 98.7 F 20 100 Intake and Output 08/11/20 08/12/20 08/12/20 22:59 06:59 14:59 Intake Total 580 480 Output Total 250 1500 Balance 330 -1020 Intake: IV 100 Oral 480 480 Output: Urine 250 1500 Indwelling Catheter 600 Void 900 Other: Total, Intake Amount 240 240 Total, Output Amount 300 # Voids Indwelling Catheter 1 - Exam Breasts: Present: normal Abdomen: Present: normal appearance, soft, normal bowel sounds Vulva: both: normal Uterus: Present: normal, firm, fundal height below umbilicus Incision: Present: normal, dry, intact, dressed - Labs Labs: Abnormal lab results 08/11/20 Range/Units 10:20 Seg Neutrophils % 73.4 H (40.0-70.0) %
[2020-08-12] MEDS ORDERED: NIFEdipine XL 30 MG TAB PO SCH (10:00)
[2020-08-12] MEDS ORDERED: NIFEdipine XL 60 MG TAB PO SCH (10:00)
--- NOTE | 2020-08-12 11:07 | Consultation ---
History of Present Illness - Reason for Consult Consult date: 08/12/20 Hypertension Requesting physician: DIANE COOL - History of Present Illness Patient is 39 yo with chronic hypertension, asthma, Crohn's disease, morbid obesity. She is not on any medications for hypertension because she has no medical insurance. She was admitted here and had a yesterday. Her BP has been high and therefore Hospitalist has been consulted for evaluation. Most recent BP was 168/93. I requested a repeat which is now 149/79. She denies chest pain, denies SOB. She complains of leg edema which she has had during . No fever. No shortness of breath. Past History Past Medical History: hypertension, other (Obesity, Crohn's disease) Past Surgical History: Social history: smoking Family history: hypertension Medications and Allergies Allergies Allergy/AdvReac Type Severity Reaction Status Date / Time Penicillins Allergy Rash Verified 08/11/20 09:29 Home Medications Medication Instructions Recorded Confirmed Last Taken Type Labetalol HCl [Labetalol 300mg TAB] 600 mg PO TID 06/30/20 08/11/20 08/11/20 08:00 History Ibuprofen [Motrin 800 MG tab] 800 mg PO Q6H PRN #30 tablet 08/11/20 Unknown Rx NIFEdipine [Procardia Xl] 30 mg PO DAILY 08/11/20 08/11/20 08/11/20 08:00 History Vit-Fe Fumar-FA [ 1 tab PO DAILY 08/11/20 08/11/20 08/10/20 22:00 History Vitamin] oxyCODONE /ACETAMINOPHEN [Percocet 1 tab PO Q6H PRN #30 tablet 08/11/20 Unknown Rx 5/325 mg] Active Meds: Active Medications Oxytocin/Sodium Chloride (Pitocin/Ns 30 Unit/500ml) 30 units in 500 mls @ 40 mls/hr IV TITR BRAULIO; Protocol Ibuprofen (Ibuprofen 800 Mg Tab) 800 mg PO Q6H PRN PRN Reason: Pain, Mild (1-3) Ketorolac Tromethamine (Ketorolac 30 Mg/1 Ml Inj) 30 mg IV Q6H PRN PRN Reason: Pain, Moderate (4-6) Stop: 08/12/20 15:59 Last Admin: 08/11/20 22:19 Dose: 30 mg Documented by: Labetalol HCl (Labetalol 200 Mg Tab) 600 mg PO 0800,1500,2200 BRAULIO Last Admin: 08/12/20 06:26 Dose: 600 mg Documented by: Magnesium Hydroxide (Magnesium Hydroxide (Mom) Oral Liqd Udc) 30 ml PO QHS PRN PRN Reason: Constip Unrelieved By Senna Multi-Ingredient Ointment (Lanolin/Zinc/Dimethicone (Lansinoh) 7 Gm) 1 applic TP PRN PRN PRN Reason: dryness/cracking Naloxone HCl (Naloxone 0.4 Mg/1 Ml Inj) 0.1 mg IV Q2MIN PRN PRN Reason: Res Rate </= 8 or 02 SAT < 92% Nifedipine (Nifedipine Xl 60 Mg Tab) 60 mg PO QDAY BRAULIO Ondansetron HCl (Ondansetron 4 Mg/2 Ml Inj) 4 mg IV Q8H PRN PRN Reason: Nausea And Vomiting Oxycodone/Acetaminophen (Oxycodone /Acetaminophen 5-325mg Tab) 1 tab PO Q6H PRN PRN Reason: Pain, Moderate (4-6) Last Admin: 08/12/20 06:31 Dose: 1 tab Documented by: Senna (Sennosides 8.6 Mg Tab) 17.2 mg PO QHS PRN PRN Reason: Constipation Simethicone (Simethicone 80 Mg Chew Tab) 80 mg PO Q6H PRN PRN Reason: Gas pain Sodium Chloride (Sodium Chloride 0.9% 10 Ml Flush Syringe) 10 ml IV PRN PRN PRN Reason: flush Witch Eli/Glycerin (Witch Eli/ Glycerin Pad) 1 each TP PRN PRN PRN Reason: Hemorrhoids/cleansing/soothing Review of Systems All systems: negative Constitutional: weight gain Exam - Constitutional Vitals: Temp Pulse Resp BP Pulse Ox 98.0 F 74 18 168/93 94 08/12/20 07:57 08/12/20 07:57 08/12/20 07:57 08/12/20 07:57 08/12/20 07:57 General appearance: Present: no acute distress - EENT Eyes: Present: PERRL ENT: hearing intact - Neck Neck: Present: supple, normal ROM - Respiratory Respiratory effort: normal Respiratory: negative: CTA - Cardiovascular Rhythm: regular Heart Sounds: Present: S1 & S2 - Extremities Extremities: no ischemia, No edema - Abdominal General gastrointestinal: Present: soft, non-tender, non-distended, normal bowel sounds, other (s/p C section) - Musculoskeletal Musculoskeletal: strength equal bilaterally Results - Labs CBC & Chem 7: 08/12/20 07:26 Assessment and Plan Hypertension Currently BP 149/79 She is on Procardia XL 60mg a day and Labetalol 600mg tid Will continue same dose since BP is improved S/p C section Obs/Gyne managing Morbid Obesity I counseled her on diet and exercise to lose weight Chrohns disease stable History of asthma Stable Thanks Dr. Cool for consulting us. Will follow
--- NOTE | 2020-08-12 14:12 | Post Anesthesia Evaluation ---
- Post Anesthesia Evaluation Patient Participated: Yes Airway Patent: Yes Stable Respiratory Function: Yes Nausea/Vomiting: No Temp > 96.8F: Yes Pain Manageable: Yes Adequeate Hydration: Yes Anesthesia Complications: No Block Receding Appropriately: Yes Patient on Ventilator: No
[2020-08-12] MEDS: IBUPROFEN 800 MG TAB PO PRN (15:02)
[2020-08-13] MEDS: IBUPROFEN 800 MG TAB PO PRN (02:38)
[2020-08-13] MEDS: oxyCODONE /ACETAMINOPHEN 5-325MG TAB PO PRN ×2 (05:15→18:31)
[2020-08-13] MEDS: NIFEdipine XL 90 MG TAB PO SCH (10:32)
[2020-08-13] MEDS: FERROUS SULFATE 325 MG TAB PO SCH ×2 (11:55→22:10)
--- NOTE | 2020-08-13 12:09 | Progress Note ---
Assessment and Plan A: /postop day 2 S/P repeat LTCS with BTL. Chronic hypertension. Anemia. P: Iron supplementation. Continue Labetalol and Procardia. Subjective - Subjective Date of service: 08/13/20 Principal diagnosis: /postop day 2 S/P repeat LTCS with BTL Patient reports: appetite normal, voiding normally, pain well controlled, flatus, ambulating normally, no dizzy ambulation, no nauseated [place]: doing well Objective - Vital Signs Latest vital signs: Vital Signs Temp Pulse Resp BP BP Pulse Ox 08/13/20 09:24 82 147/92 08/13/20 08:00 98.3 F 74 18 142/87 98 08/13/20 04:44 98.1 F 77 20 156/87 96 08/13/20 00:57 98.7 F 79 20 168/85 100 08/12/20 21:50 71 162/83 08/12/20 20:10 98.7 F 72 141/72 08/12/20 17:20 98.9 F 75 18 161/84 96 08/12/20 16:02 98.0 F 76 20 168/78 99 08/12/20 15:07 72 145/75 Intake and Output 08/12/20 08/13/20 08/13/20 23:59 07:59 15:59 Intake Total 360 120 Balance 360 120 Intake: Oral 360 Intake, Free Water 120 Other: Total, Intake Amount 360 # Voids Void 1 1 - Exam Lungs: Present: Clear to auscultation Abdomen: Present: normal appearance, soft, normal bowel sounds. Absent: distention, tenderness, guarding, rigidity Uterus: Present: normal, firm, fundal height below umbilicus. Absent: bogginess, tenderness Extremities: Absent: tenderness Incision: Present: normal, dry, intact
--- NOTE | 2020-08-13 14:09 | Progress Note ---
Assessment and Plan Assessment and plan: Hypertension Still uncontrolled BP was 149/79 in morning yesterday but became higher during the day She is on Procardia XL 60mg a day and Labetalol 600mg tid Increased Procardia XL to 90 mg daily S/p C section Obs/Gyne managing Morbid Obesity I counseled her on diet and exercise to lose weight Chrohns disease stable History of asthma Stable Thanks Dr. Cool for consulting us. Will continue to follow History Interval history: Elevated BP No headache Hospitalist Physical - Physical exam Narrative exam: Gen: Not in acute distress, sitting up in chair, moorbidly obese Neck:supple, no JVD Lungs:Clear to auscultation, no rales, no wheeze Heart:S1 and S2 reg, no murmurs, rubs, or gallop Abd:soft, non tender, non distended, normal bowel sounds Ext: Bilateral leg edema, no clubbing, no cyanosis Neuro:AAO X 3, no focal signs Psych:Normal mood, calm - Constitutional Vitals: Temp Pulse Resp BP Pulse Ox 98.9 F 91 H 17 156/86 97 08/13/20 13:15 08/13/20 13:15 08/13/20 13:15 08/13/20 13:15 08/13/20 13:15 Results - Labs CBC & Chem 7: 08/12/20 07:26 Labs: Laboratory Last Values WBC 9.3 K/mm3 (4.5-11.0) 08/11/20 10:20 RBC 4.13 M/mm3 (3.65-5.03) 08/11/20 10:20 Hgb 10.7 gm/dl (10.1-14.3) 08/12/20 07:26 Hct 32.5 % (30.3-42.9) 08/12/20 07:26 MCV 86 fl (79-97) 08/11/20 10:20 MCH 29 pg (28-32) 08/11/20 10:20 MCHC 33 % (30-34) 08/11/20 10:20 RDW 14.2 % (13.2-15.2) 08/11/20 10:20 Plt Count 179 K/mm3 (140-440) 08/11/20 10:20 Lymph % (Auto) 18.1 % (13.4-35.0) 08/11/20 10:20 [place] % (Auto) 6.4 % (0.0-7.3) 08/11/20 10:20 Eos % (Auto) 1.4 % (0.0-4.3) 08/11/20 10:20 Baso % (Auto) 0.7 % (0.0-1.8) 08/11/20 10:20 Lymph # (Auto) 1.7 K/mm3 (1.2-5.4) 08/11/20 10:20 [place] # (Auto) 0.6 K/mm3 (0.0-0.8) 08/11/20 10:20 Eos # (Auto) 0.1 K/mm3 (0.0-0.4) 08/11/20 10:20 Baso # (Auto) 0.1 K/mm3 (0.0-0.1) 08/11/20 10:20 Seg Neutrophils % 73.4 % (40.0-70.0) H 08/11/20 10:20 Seg Neutrophils # 6.8 K/mm3 (1.8-7.7) 08/11/20 10:20 Syphilis IgG Antibody Nonreactive (NonReactive) 08/11/20 11:25 Coronavirus (PCR) Negative (Negative) 08/11/20 10:45 Blood Type A NEGATIVE 08/12/20 07:26 Antibody Screen Positive 08/12/20 07:26 Antibody Identification Cancelled 08/12/20 07:26 Screen Negative 08/12/20 07:26 Active Medications - Current Medications Current Medications: Generic Name Dose Route Start Last Admin Trade Name Freq PRN Reason Stop Dose Admin Ferrous Sulfate 325 mg 08/13/20 11:00 Ferrous Sulfate 325 Mg Tab PO BID [facility] Oxytocin/Sodium Chloride 30 units in 500 mls @ 40 mls/hr 08/11/20 16:00 Pitocin/Ns 30 Unit/500ml IV TITR [facility] Protocol Ibuprofen 800 mg 08/12/20 16:00 08/13/20 02:38 Ibuprofen 800 Mg Tab PO 800 mg Q6H PRN Administration Pain, Mild (1-3) Labetalol HCl 600 mg 08/11/20 18:00 08/13/20 09:24 Labetalol 200 Mg Tab PO 600 mg 0800,1500,2200 BRAULIO Administration Magnesium Hydroxide 30 ml 08/11/20 22:00 Magnesium Hydroxide (Mom) Oral Liqd Udc PO QHS PRN Constip Unrelieved By Senna Multi-Ingredient Ointment 1 applic 08/11/20 16:00 08/12/20 11:09 Lanolin/Zinc/Dimethicone (Lansinoh) 7 Gm TP 1 applic PRN PRN Administration dryness/cracking Naloxone HCl 0.1 mg 08/11/20 16:00 Naloxone 0.4 Mg/1 Ml Inj IV Q2MIN PRN Res Rate </= 8 or 02 SAT < 92% Nifedipine 90 mg 08/13/20 10:00 08/13/20 10:32 Nifedipine Xl 90 Mg Tab PO 90 mg QDAY BRAULIO Administration Ondansetron HCl 4 mg 08/11/20 16:30 Ondansetron 4 Mg/2 Ml Inj IV Q8H PRN Nausea And Vomiting Oxycodone/Acetaminophen 1 tab 08/11/20 16:30 08/13/20 05:15 Oxycodone /Acetaminophen 5-325mg Tab PO 1 tab Q6H PRN Administration Pain, Moderate (4-6) Senna 17.2 mg 08/11/20 22:00 08/12/20 15:02 Sennosides 8.6 Mg Tab PO 17.2 mg QHS PRN Administration Constipation Simethicone 80 mg 08/11/20 16:30 Simethicone 80 Mg Chew Tab PO Q6H PRN Gas pain Sodium Chloride 10 ml 08/11/20 16:00 Sodium Chloride 0.9% 10 Ml Flush Syringe IV PRN PRN flush Witch Eli/Glycerin 1 each 08/11/20 16:00 Witch Eli/ Glycerin Pad TP PRN PRN Hemorrhoids/cleansing/soothing
[2020-08-14] MEDS: oxyCODONE /ACETAMINOPHEN 5-325MG TAB PO PRN (01:58)
--- NOTE | 2020-08-14 06:51 | Progress Note ---
Assessment and Plan A: /postop day 3 S/P repeat LTCS with BTL. Anemia. Chronic hypertension. P: Iron supplementation. Continue Labetalol and Procardia. Disposition/timing of discharge to be determined by . Hospitalist following for hypertension. Subjective - Subjective Date of service: 08/14/20 Principal diagnosis: /postop day 3 S/P repeat LTCS with BTL Interval history: Being followed by hospitalist for elevated blood pressures. Patient reports: appetite normal, voiding normally, pain well controlled, flatus, ambulating normally, no dizzy ambulation, no nauseated : doing well Objective - Vital Signs Latest vital signs: Vital Signs Temp Pulse Resp BP BP Pulse Ox 08/14/20 01:35 98.3 F 83 18 139/79 98 08/13/20 22:09 83 161/91 08/13/20 21:22 98.6 F 79 18 161/91 98 08/13/20 14:47 162/86 08/13/20 14:42 86 162/86 08/13/20 13:15 98.9 F 91 H 17 156/86 97 08/13/20 09:24 82 147/92 08/13/20 08:00 98.3 F 74 18 142/87 98 Intake and Output 08/13/20 08/13/20 08/14/20 15:59 23:59 07:59 Intake Total 480 480 Balance 480 480 Intake: Intake, Free Water 480 480 Other: # Voids Void 3 1 - Exam Cardiovascular: Present: Regular rate Lungs: Present: Clear to auscultation Abdomen: Present: normal appearance, soft, normal bowel sounds. Absent: distention, tenderness, guarding, rigidity Uterus: Present: normal, firm, fundal height below umbilicus. Absent: bogginess, tenderness Extremities: Present: edema. Absent: tenderness Incision: Present: normal, dry, intact
[2020-08-14] MEDS: IBUPROFEN 800 MG TAB PO PRN (08:04)
--- NOTE | 2020-08-14 10:02 | Progress Note ---
Assessment and Plan Assessment and plan: Hypertension BP now controlled. Most recent BP 136/73 She is on Procardia XL 90mg once a day and Labetalol 600mg tid BP stable so patient medically stable to discharge home on Procardia XL 90 mg once a day and Labetalol 600mg po tid. She is to follow with PCP in 1 week, and follow with Dr. Roe Ceron, Cardiology in 1 week S/p C section Obs/Gyne managing Morbid Obesity I counseled her on diet and exercise to lose weight Chrohns disease stable History of asthma Stable Thanks Dr. Cool for consulting us. History Interval history: BP now normalized No headache Hospitalist Physical - Physical exam Narrative exam: Gen: Not in acute distress, sitting up in chair, moorbidly obese Neck:supple, no JVD Lungs:Clear to auscultation, no rales, no wheeze Heart:S1 and S2 reg, no murmurs, rubs, or gallop Abd:soft, non tender, non distended, normal bowel sounds Ext: Bilateral leg edema, no clubbing, no cyanosis Neuro:AAO X 3, no focal signs Psych:Normal mood, calm - Constitutional Vitals: Temp Pulse Resp BP Pulse Ox 98.8 F 74 20 163/73 94 08/14/20 07:40 08/14/20 07:55 08/14/20 07:40 08/14/20 07:55 08/14/20 05:46 General appearance: Present: no acute distress Results - Labs CBC & Chem 7: 08/12/20 07:26 Labs: Laboratory Last Values WBC 9.3 K/mm3 (4.5-11.0) 08/11/20 10:20 RBC 4.13 M/mm3 (3.65-5.03) 08/11/20 10:20 Hgb 10.7 gm/dl (10.1-14.3) 08/12/20 07:26 Hct 32.5 % (30.3-42.9) 08/12/20 07:26 MCV 86 fl (79-97) 08/11/20 10:20 MCH 29 pg (28-32) 08/11/20 10:20 MCHC 33 % (30-34) 08/11/20 10:20 RDW 14.2 % (13.2-15.2) 08/11/20 10:20 Plt Count 179 K/mm3 (140-440) 08/11/20 10:20 Lymph % (Auto) 18.1 % (13.4-35.0) 08/11/20 10:20 [place] % (Auto) 6.4 % (0.0-7.3) 08/11/20 10:20 Eos % (Auto) 1.4 % (0.0-4.3) 08/11/20 10:20 Baso % (Auto) 0.7 % (0.0-1.8) 08/11/20 10:20 Lymph # (Auto) 1.7 K/mm3 (1.2-5.4) 08/11/20 10:20 [place] # (Auto) 0.6 K/mm3 (0.0-0.8) 08/11/20 10:20 Eos # (Auto) 0.1 K/mm3 (0.0-0.4) 08/11/20 10:20 Baso # (Auto) 0.1 K/mm3 (0.0-0.1) 08/11/20 10:20 Seg Neutrophils % 73.4 % (40.0-70.0) H 08/11/20 10:20 Seg Neutrophils # 6.8 K/mm3 (1.8-7.7) 08/11/20 10:20 Syphilis IgG Antibody Nonreactive (NonReactive) 08/11/20 11:25 Coronavirus (PCR) Negative (Negative) 08/11/20 10:45 Blood Type A NEGATIVE 08/12/20 07:26 Antibody Screen Positive 08/12/20 07:26 Antibody Identification Cancelled 08/12/20 07:26 Screen Negative 08/12/20 07:26 Active Medications - Current Medications Current Medications: Generic Name Dose Route Start Last Admin Trade Name Freq PRN Reason Stop Dose Admin Ferrous Sulfate 325 mg 08/13/20 11:00 08/13/20 22:10 Ferrous Sulfate 325 Mg Tab PO 325 mg BID BRAULIO Administration Oxytocin/Sodium Chloride 30 units in 500 mls @ 40 mls/hr 08/11/20 16:00 Pitocin/Ns 30 Unit/500ml IV TITR BRAULIO Protocol Ibuprofen 800 mg 08/12/20 16:00 08/14/20 08:04 Ibuprofen 800 Mg Tab PO 800 mg Q6H PRN Administration Pain, Mild (1-3) Labetalol HCl 600 mg 08/11/20 18:00 08/14/20 07:55 Labetalol 200 Mg Tab PO 600 mg 0800,1500,2200 BRAULIO Administration Magnesium Hydroxide 30 ml 08/11/20 22:00 Magnesium Hydroxide (Mom) Oral Liqd Udc PO QHS PRN Constip Unrelieved By Senna Multi-Ingredient Ointment 1 applic 08/11/20 16:00 08/12/20 11:09 Lanolin/Zinc/Dimethicone (Lansinoh) 7 Gm TP 1 applic PRN PRN Administration dryness/cracking Naloxone HCl 0.1 mg 08/11/20 16:00 Naloxone 0.4 Mg/1 Ml Inj IV Q2MIN PRN Res Rate </= 8 or 02 SAT < 92% Nifedipine 90 mg 08/13/20 10:00 08/13/20 10:32 Nifedipine Xl 90 Mg Tab PO 90 mg QDAY BRAULIO Administration Ondansetron HCl 4 mg 08/11/20 16:30 Ondansetron 4 Mg/2 Ml Inj IV Q8H PRN Nausea And Vomiting Oxycodone/Acetaminophen 1 tab 08/11/20 16:30 08/14/20 01:58 Oxycodone /Acetaminophen 5-325mg Tab PO 1 tab Q6H PRN Administration Pain, Moderate (4-6) Senna 17.2 mg 08/11/20 22:00 08/12/20 15:02 Sennosides 8.6 Mg Tab PO 17.2 mg QHS PRN Administration Constipation Simethicone 80 mg 08/11/20 16:30 Simethicone 80 Mg Chew Tab PO Q6H PRN Gas pain Sodium Chloride 10 ml 08/11/20 16:00 Sodium Chloride 0.9% 10 Ml Flush Syringe IV PRN PRN flush Witch Eli/Glycerin 1 each 08/11/20 16:00 08/14/20 08:01 Witch Eli/ Glycerin Pad TP 1 each PRN PRN Administration Hemorrhoids/cleansing/soothing
--- NOTE | 2020-08-14 10:04 | Event Note ---
Date: 08/14/20 I have seen and examined patient. BP137/65. She is medically stable to discharge home on Labetalol 600mg tid and Procardia XL 90mg po daily. To follow with PCP in 1 week, and also to follow with Dr. Roe Ceron, her insulation foreman in 1 week.
[2020-08-14] MEDS: FERROUS SULFATE 325 MG TAB PO SCH (10:10)
[2020-08-14] MEDS: NIFEdipine XL 90 MG TAB PO SCH (10:27)
--- NOTE | 2020-08-14 16:11 | Discharge Summary ---
Providers - Providers Date of Admission: 08/11/20 09:10 Date of discharge: 08/14/20 Attending physician: JUAN JOSÉ VILLA MD 08/12/20 09:05 Consult to Physician [CONS] Routine Comment: Consulting Provider: EDSON ROSE Physician Instructions: please evaluate and tx Reason For Exam: chronic htn with uncontrolled b/p Primary care physician: JACKELYN WEAVER JR, MD Hospitalization Disposition: - TO HOME OR SELFCARE Plan - Discharge Medications Prescriptions: labetaloL [Labetalol 200mg TAB] 600 mg PO 0800,1500,2200 #90 tablet Ibuprofen [Motrin 800 MG tab] 800 mg PO Q6H PRN #30 tablet PRN Reason: Pain, Moderate (4-6) oxyCODONE /ACETAMINOPHEN [Percocet 5/325 mg] 1 tab PO Q6H PRN #30 tablet PRN Reason: Pain, Moderate (4-6) NIFEdipine XL [Procardia Xl] 90 mg PO QDAY #30 tablet - Provider Discharge Summary Activity: no sex for 6 weeks Diet: routine Additional instructions: [] Smoking cessation referral if applicable(refer to patient education folder for contact #) [] Refer to [facility]'s [facility] Booklet Call your doctor immediately for: * Fever > 100.5 * Heavy vaginal bleeding ( >1 pad per hour) * Severe persistent headache * Shortness of breath * Reddened, hot, painful area to leg or breast * Drainage or odor from incision. * Keep incision clean and dry at all times and follow doctor's instructions regarding bathing/showering - Follow up plan Follow up: DIANE HUTCHINS MD [Staff Physician] - 14 Days
[2020-08-14 17:30] VITALS: BP 145/87
== END 2020-08-14 17:30 | disposition home or self-care (01) | DRG 765 ==
LOC: APU 09:10 → OB 17:27
PROVIDERS: ADMIT Obstetrics & Gynecology
PROC: 10D00Z1 Extraction of Products of Conception, Low, Open Approach (ICD-10-PCS; principal; 2020-08-11)
PROC: 0UB70ZZ Excision of Bilateral Fallopian Tubes, Open Approach (ICD-10-PCS; 2020-08-11)
DX: O34.211 Maternal care for low transverse scar from previous cesarean delivery (principal); O10.92 Unspecified pre-existing hypertension complicating childbirth; J45.909 Unspecified asthma, uncomplicated; O99.214 Obesity complicating childbirth; Z20.822 Contact with and (suspected) exposure to COVID-19; D64.9 Anemia, unspecified; E66.01 Morbid (severe) obesity due to excess calories; O99.52 Diseases of the respiratory system complicating childbirth; Z37.0 Single live birth; Z3A.36 36 weeks gestation of pregnancy; Z82.49 Family history of ischemic heart disease and other diseases of the circulatory system; Z88.0 Allergy status to penicillin; Z30.2 Encounter for sterilization
CPT/HCPCS: 36415; 85014; 85018; 85025; 85461; 86592; 86850; 86870; 86900; 86901; 88302; 93306; 96360; 96365; 96374; 99211; G0378; A6250; G0463; J1100; J1885; J2370; J2405; J2765; J2790; J3490; J7120; U0003

== ENCOUNTER 2020-12-12 12:42 | Emergency (ER) | payer MEDICAID ==
[2020-12-12] MEDS ORDERED: hydrALAZINE 100 MG TAB PO ONE (13:00)
--- NOTE | 2020-12-12 13:03 | Emergency Department Report ---
ED Shortness of Breath HPI - General Chief Complaint: Dyspnea/Respdistress Stated Complaint: SOB/3 DAYS OF FATIGUE Time Seen by Provider: 12/12/20 12:53 Source: patient Mode of arrival: Ambulatory Limitations: No Limitations - History of Present Illness Initial Comments: Patient is a 39-year-old female presents emergency room complaints of shortness of breath that began 3 days ago. She states her shortness of breath is worse with exertion and she feels winded after taking a few steps. She states it also feels worse at night and when she lays flat. He states that she also gets a cough at night. She denies any leg swelling that she has noticed, fever, hemoptysis, chest pain, nausea, vomiting, diarrhea, sore throat, ear pain, body aches, chills. She has a past medical history of Crohn's disease and chronic hypertension. She has allergy to penicillin. She is a current smoker half a pack a day. she denies any recent travel, recent immobilization, hormone use. Patient states that her blood pressure "is always high." She states she has been dealing with chronic hypertension since 18 years old. Patient states that she takes nifedipine and one other blood pressure medication that she cannot remember the name of. Patient states that during her last she was seeing a paper products machine operator and was advised that she had an enlarged heart but she denies being diagnosed with congestive heart failure and she states that on her follow-up appointment with a paper products machine operator she states that her heart had improved to normal size per patient. [employer] Dr. Roe Ceron who she states she saw at [facility] - Related Data Home Medications Medication Instructions Recorded Confirmed Last Taken Labetalol HCl [Labetalol 300mg TAB] 600 mg PO TID 06/30/20 08/11/20 08/11/20 08:00 NIFEdipine [Procardia Xl] 30 mg PO DAILY 08/11/20 08/11/20 08/11/20 08:00 Vit-Fe Fumar-FA [ 1 tab PO DAILY 08/11/20 08/11/20 08/10/20 22:00 Vitamin] Previous Rx's Medication Instructions Recorded Last Taken Type Ibuprofen [Motrin 800 MG tab] 800 mg PO Q6H PRN #30 tablet 08/11/20 Unknown Rx oxyCODONE /ACETAMINOPHEN [Percocet 1 tab PO Q6H PRN #30 tablet 08/11/20 Unknown Rx 5/325 mg] NIFEdipine XL [Procardia Xl] 90 mg PO QDAY #30 tablet 08/14/20 Unknown Rx labetaloL [Labetalol 200mg TAB] 600 mg PO 0800,1500,2200 #90 tablet 08/14/20 Unknown Rx Allergies Allergy/AdvReac Type Severity Reaction Status Date / Time Penicillins Allergy Rash Verified 08/11/20 09:29 ED Review of Systems ROS: Stated complaint: SOB/3 DAYS OF FATIGUE Other details as noted in HPI Comment: All other systems reviewed and negative ED Past Medical Hx - Past Medical History Previous Medical History?: Yes Hx Hypertension: Yes (CHTN) Hx Congestive Heart Failure: No Hx Diabetes: No Hx Deep Vein Thrombosis: No Hx Renal Disease: No Hx Sickle Cell Disease: No Hx Seizures: No Hx Asthma: Yes (last asthma attack years ago, has inhaler) Hx COPD: No Hx HIV: No Additional medical history: Crohns Disease. bronchitis - Surgical History Past Surgical History?: Yes Additional Surgical History: times 4. tubal ligation - Social History Smoking Status: Current Every Day Smoker - Medications Home Medications: Home Medications Medication Instructions Recorded Confirmed Last Taken Type Labetalol HCl [Labetalol 300mg TAB] 600 mg PO TID 06/30/20 08/11/20 08/11/20 08:00 History Ibuprofen [Motrin 800 MG tab] 800 mg PO Q6H PRN #30 tablet 08/11/20 Unknown Rx NIFEdipine [Procardia Xl] 30 mg PO DAILY 08/11/20 08/11/20 08/11/20 08:00 History Vit-Fe Fumar-FA [ 1 tab PO DAILY 08/11/20 08/11/20 08/10/20 22:00 History Vitamin] oxyCODONE /ACETAMINOPHEN [Percocet 1 tab PO Q6H PRN #30 tablet 08/11/20 Unknown Rx 5/325 mg] NIFEdipine XL [Procardia Xl] 90 mg PO QDAY #30 tablet 08/14/20 Unknown Rx labetaloL [Labetalol 200mg TAB] 600 mg PO 0800,1500,2200 #90 tablet 08/14/20 Unknown Rx ED Physical Exam - General Limitations: No Limitations General appearance: alert, in no apparent distress - Head Head exam: Present: atraumatic, normocephalic - Eye Eye exam: Present: normal appearance - ENT ENT exam: Present: mucous membranes moist - Respiratory Respiratory exam: Present: rales. Absent: respiratory distress, wheezes, rhonchi, stridor, chest wall tenderness, accessory muscle use, decreased breath sounds, prolonged expiratory - Cardiovascular Cardiovascular Exam: Present: regular rate, normal rhythm, normal heart sounds. Absent: systolic murmur, diastolic murmur, rubs, gallop - Extremities Exam Extremities exam: Present: other (2+ pitting edema BLE, no calf ttp ) - Neurological Exam Neurological exam: Present: alert, oriented X3 - Psychiatric Psychiatric exam: Present: normal affect, normal mood - Skin Skin exam: Present: warm, dry, intact ED Course Vital Signs 12/12/20 12/12/20 12/12/20 12:47 13:58 14:01 Temperature 98.9 F Pulse Rate 98 H 77 80 Respiratory 20 18 14 Rate Blood Pressure 149/101 Blood Pressure 202/117 [Right] O2 Sat by Pulse 100 Oximetry 12/12/20 12/12/20 12/12/20 14:16 16:47 17:01 Temperature Pulse Rate 86 83 76 Respiratory 24 15 24 Rate Blood Pressure 149/101 149/101 170/110 Blood Pressure [Right] O2 Sat by Pulse Oximetry 12/12/20 12/12/20 12/12/20 17:15 17:31 17:45 Temperature Pulse Rate 81 85 82 Respiratory 26 H 16 14 Rate Blood Pressure 149/101 179/113 179/113 Blood Pressure [Right] O2 Sat by Pulse Oximetry 12/12/20 12/12/20 12/12/20 18:01 18:15 18:31 Temperature Pulse Rate 78 89 85 Respiratory 13 17 24 Rate Blood Pressure 181/119 181/119 109/55 Blood Pressure [Right] O2 Sat by Pulse Oximetry 12/12/20 12/12/20 12/12/20 18:45 18:55 21:32 Temperature Pulse Rate 88 71 Respiratory 22 23 Rate Blood Pressure 109/55 Blood Pressure 107/56 115/62 [Right] O2 Sat by Pulse 99 Oximetry - Reevaluation(s) Reevaluation #1: 12/12/20 15:[address] Gan, ER attending regarding pt presentation and results, advised to admit to hospitalist service - Consultations Consultation #1: 12/12/[address] Kruse, hospitalist will accept and resume care of patient, will admit to hospital service ED Medical Decision Making - Lab Data Result diagrams: 12/12/20 13:05 12/12/20 13:05 - Radiology Data Radiology results: report reviewed Ordering Physician: GRETA DEVLIN Date of Service: 12/12/20 Procedure(s): XR chest routine 2V Accession Number(s): [id number] cc: GRETA DEVLIN Fluoro Time In Minutes: XR chest routine 2V INDICATION / CLINICAL INFORMATION: SOB, BLE edema, cough. COMPARISON: None available. FINDINGS: SUPPORT DEVICES: None. HEART /PULMONARY VASCULATURE: Cardiac enlargement with pulmonary vasculature congestion. LUNGS / PLEURA: No significant pulmonary or pleural abnormality. No pneumothorax. ADDITIONAL FINDINGS: No significant additional findings. IMPRESSION: CHF/volume overload with bibasilar interstitial edema. Signer Name: Moira Guerin MD Signed: 12/12/2020 2:53 PM Workstation Name: [id number] Transcribed By: JS Dictated By: MOIRA GUERIN MD Electronically Authenticated By: MOIRA GUERIN MD Signed Date/Time: 12/12/20 145 DD/ 1452 TD/TT: Ordering Physician: GRETA DEVLIN Date of Service: 12/12/20 Procedure(s): CT angio chest Accession Number(s): [id number] cc: GRETA DEVLIN CTA CHEST WITH CONTRAST INDICATION / CLINICAL INFORMATION: SOB, elevated d-dimer. TECHNIQUE: Axial CT images were obtained through the chest after injection of IV contrast. 3 plane MIP and/or 3D reconstructions were produced. All CT scans at this location are performed using CT dose reduction for ALARA by means of automated exposure control. COMPARISON: None available. FINDINGS: PULMONARY ARTERIES: No central or segmental pulmonary embolus. THORACIC AORTA: No significant abnormality. HEART: The heart is enlarged. No pericardial effusion. ADENOPATHY: No significant adenopathy. LUNGS/PLEURA: There is scattered interlobular septal thickening. No focal airspace consolidation. Small bilateral pleural effusions, right greater than left. Sub-6 mm subpleural/perifissural nodules in the right lung, of doubtful clinical significance. No pneumothorax. ADDITIONAL FINDINGS: None. UPPER ABDOMEN: No acute findings. SKELETAL STRUCTURES: No significant osseous abnormality. IMPRESSION: 1. No evidence for pulmonary embolism. 2. Small bilateral pleural effusions and diffuse interlobular septal thickening, likely reflecting pulmonary edema in the setting of volume overload/CHF. No evidence of pneumonia. Signer Name: Moira Guerin MD Signed: 12/12/2020 2:46 PM Workstation Name: [id number] Transcribed By: JS Dictated By: MOIRA GUERIN MD Electronically Authenticated By: MOIRA GUERIN MD Signed Date/Time: 12/12/201445 DD/ 42 TD/TT: - Medical Decision Making Patient is a 39-year-old female presents emergency room complaints of shortness of breath that began 3 days ago. She states her shortness of breath is worse with exertion and she feels winded after taking a few steps. She states it also feels worse at night and when she lays flat. He states that she also gets a cough at night. She denies any leg swelling that she has noticed, fever, hemoptysis, chest pain, nausea, vomiting, diarrhea, sore throat, ear pain, body aches, chills. She has a past medical history of Crohn's disease and chronic hypertension. She has allergy to penicillin. She is a current smoker half a pack a day. she denies any recent travel, recent immobilization, hormone use. Patient states that her blood pressure "is always high." She states she has been dealing with chronic hypertension since 18 years old. Patient states that she takes nifedipine and one other blood pressure medication that she cannot remember the name of. Patient states that during her last she was seeing a paper products machine operator and was advised that she had an enlarged heart but she denies being diagnosed with congestive heart failure and she states that on her follow-up appointment with a paper products machine operator she states that her heart had improved to normal size per patient. [employer] Administrator Dr. Roe Ceron who she states she saw at [facility] Initial vitals with significantly elevated blood pressure, ordered for patient to have p.o. hydralazine. On exam patient has 2+ pitting edema bilaterally. Rales present to the bilateral bases of the lungs. Labs significant for elevated D-dimer, elevated BNP, hypokalemia. Patient given K-Dur. Chest x-ray CHF/volume overload with bibasilar interstitial edema. CT angio chest 1. No evidence for pulmonary embolism. 2. Small bilateral pleural effusions and diffuse interlobular septal thickening, likely reflecting pulmonary edema in the setting of volume overload/CHF. No evidence of pneumonia. Findings significant for new onset CHF with pulmonary edema. Discussed case with Dr. Gan, ER attending who recommend admission. discussed case with Dr. Kruse, hospitalist will accept and resume care of patient, will admit to hospital service. Patient is agreeable with admission. Critical care attestation.: If time is entered above; I have spent that time in minutes in the direct care of this critically ill patient, excluding procedure time. ED Disposition Clinical Impression: SOB (shortness of breath), New onset of congestive heart failure, Hypertensive urgency Pulmonary edema Qualifiers: Chronicity: acute Qualified Code(s): J81.0 - Acute pulmonary edema Disposition: 02 SHORT TERM HOSPITAL Is pt being admited?: Yes Does the pt Need Aspirin: No Condition: Stable Instructions: Pulmonary Edema (ED) Time of Disposition: 15:43 Print Language: UPPER SORBIAN
[2020-12-12 13:22] LABS: Basophils % (Auto) 0.4 % (0.0-1.8); Eosinophils # (Auto) 0.2 K/mm3 (0.0-0.4); Eosinophils % (Auto) 2.2 % (0.0-4.3); Hematocrit 34.9 % (30.3-42.9); Hemoglobin 11.4 gm/dl (10.1-14.3); Lymphocytes # (Auto) 1.6 K/mm3 (1.2-5.4); Mean Corpuscular HGB Conc 33 % (30-34); Mean Corpuscular Volume 82 fl (79-97); Monocytes # (Auto) 0.4 K/mm3 (0.0-0.8); Monocytes % (Auto) 5.8 % (0.0-7.3); Platelet Count 227 K/mm3 (140-440); Red Blood Count 4.25 M/mm3 (3.65-5.03); Red Cell Distribution Width 13.9 % (13.2-15.2)
[2020-12-12 13:46] LABS: Alanine Aminotransferase 42 units/L (7-56); Albumin 3.6 g/dL (3.9-5); BUN/Creatinine Ratio 10; Blood Urea Nitrogen 11 mg/dL (7-17); Calcium 8.8 mg/dL (8.4-10.2); Hemolysis Index 2
[2020-12-12] MEDS ORDERED: POTASSIUM CHLORIDE ER 20 MEQ TAB PO ONE (13:53)
--- NOTE | 2020-12-12 14:51 | Cat Scan Report ---
CTA CHEST WITH CONTRAST INDICATION / CLINICAL INFORMATION: SOB, elevated d-dimer. TECHNIQUE: Axial CT images were obtained through the chest after injection of IV contrast. 3 plane MN P and/or 3D reconstructions were produced. All CT scans at this location are performed using CT dose reduction for ALARA by means of automated exposure control. COMPARISON: None available. FINDINGS: PULMONARY ARTERIES: No central or segmental pulmonary embolus. THORACIC AORTA: No significant abnormality. HEART: The heart is enlarged. No pericardial effusion. ADENOPATHY: No significant adenopathy. LUNGS/PLEURA: There is scattered interlobular septal thickening. No focal airspace consolidation. Sma ll bilateral pleural effusions, right greater than left. Sub-6 mm subpleural/perifissural nodules in the right lung, of doubtful clinical significance. No pneumothorax. ADDITIONAL FINDINGS: None. UPPER ABDOMEN: No acute findings. SKELETAL STRUCTURES: No significant osseous abnormality. IMPRESSION: 1. No evidence for pulmonary embolism. 2. Small bilateral pleural effusions and diffuse interlobular septal thickening, likely reflecting pu lmonary edema in the setting of volume overload/CHF. No evidence of pneumonia. Signer Name: Tobin Guerin MD Signed: 12/12/2020 2:46 PM Workstation Name: [id number]
--- NOTE | 2020-12-12 14:57 | XRay Report ---
XR chest routine 2V INDICATION / CLINICAL INFORMATION: SOB, BLE edema, cough. COMPARISON: None available. FINDINGS: SUPPORT DEVICES: None. HEART /PULMONARY VASCULATURE: Cardiac enlargement with pulmonary vasculature congestion. LUNGS / PLEURA: No significant pulmonary or pleural abnormality. No pneumothorax. ADDITIONAL FINDINGS: No significant additional findings. IMPRESSION: CHF/volume overload with bibasilar interstitial edema. Signer Name: Tobin Guerin MD Signed: 12/12/2020 2:53 PM Workstation Name: [id number]
--- NOTE | 2020-12-12 15:22 | History and Physical Report ---
History of Present Illness Chief complaint: I cannot breathe and my legs are swollen History of present illness: 39 YO Female with HTN, Obesity Hypoventilation Syndrome, Mild Intermittent Asthma, Crohns Disease, Nicotine Dependence presents to ED for evaluation. Patient reports I cannot breathe and my legs are swollen". Patient states that she has experienced shortness of breath, fatigue, decreased exercise tolerance, dyspnea on exertion, dyspnea at rest, bilateral lower extremity edema over the past 1 week with worsening symptoms over the past 3 days. Patient knowledges orthopnea as well as paroxysmal nocturnal dyspnea. Patient denies medication noncompliance. Patient transported to [facility] via private vehicle for further care and evaluation of the aforementioned symptoms. The patient was seen and evaluat ed in the emergency department. All labs and image studies reviewed. Patient found to have clinical symptoms consistent with CHF decompensation, malignant hypertension. Patient admitted to telemetry and initiated on CHF protocol. Cardiology team consulted in ED. Echocardiogram ordered and is pending at time of admission. Patient denies fever, chills, chest pain, palpitation, productive cough, skin rash, recent ill contacts, known exposure to COVID-19, unilateral leg swelling, calf pain, individual/family history of DVT/PE/bleeding/blood clotting disorders. No prior admission for review. All medication listed at time of admission has been reconciled. Past History Past Medical History: heart failure, hypertension, other (See HPI) Past Surgical History: , Other (Tubal ligation) Social history: single, smoking Family history: hypertension Medications and Allergies Allergies Allergy/AdvReac Type Severity Reaction Status Date / Time Penicillins Allergy Rash Verified 08/11/20 09:29 Home Medications Medication Instructions Recorded Confirmed Last Taken Type Labetalol HCl [Labetalol 300mg TAB] 600 mg PO TID 06/30/20 08/11/20 08/11/20 08:00 History Ibuprofen [Motrin 800 MG tab] 800 mg PO Q6H PRN #30 tablet 08/11/20 Unknown Rx NIFEdipine [Procardia Xl] 30 mg PO DAILY 08/11/20 08/11/20 08/11/20 08:00 History Vit-Fe Fumar-FA [ 1 tab PO DAILY 08/11/20 08/11/20 08/10/20 22:00 History Vitamin] oxyCODONE /ACETAMINOPHEN [Percocet 1 tab PO Q6H PRN #30 tablet 08/11/20 Unknown Rx 5/325 mg] NIFEdipine XL [Procardia Xl] 90 mg PO QDAY #30 tablet 08/14/20 Unknown Rx labetaloL [Labetalol 200mg TAB] 600 mg PO 0800,1500,2200 #90 tablet 08/14/20 Unknown Rx Review of Systems Constitutional: weight gain, weakness, no fever, no chills Ears, nose, mouth and throat: no ear pain, no ear discharge, no decreased hearing, no nose pain, no nasal congestion Breasts: no change in shape, no swelling, no mass Cardiovascular: orthopnea, edema, shortness of breath, dyspnea on exertion, paroxysmal nocturnal dyspnea, high blood pressure, decreased exercise tolerance, no chest pain, no palpitations, no rapid/irregular heart beat Respiratory: no cough, no cough with sputum, no excessive sputum Gastrointestinal: no nausea, no vomiting, no diarrhea Genitourinary Female: no pelvic pain, no flank pain, no dysuria, no urinary frequency, no urgency Rectal: no pain, no incontinence, no bleeding Musculoskeletal: no neck stiffness, no neck pain, no low back pain Integumentary: no rash, no pruritis, no redness, no wounds, no jaundice Neurological: no head injury, no transient paralysis, no paralysis, no weakness, no parathesias, no tingling, no seizures Psychiatric: no anxiety, no memory loss, no sleep disturbances, no hypersomnia, no change in libido, no suicidal ideation Endocrine: no cold intolerance, no polyphagia, no excessive thirst, no polydipsia, no polyuria, no nocturia Hematologic/Lymphatic: no easy bruising, no easy bleeding Allergic/Immunologic: no urticaria, no allergic rhinitis, no wheezing Exam - Constitutional Vitals: Temp Pulse Resp BP Pulse Ox 98.9 F 98 H 20 202/117 100 12/12/20 12:47 12/12/20 12:47 12/12/20 12:47 12/12/20 12:47 12/12/20 12:47 General appearance: Present: mild distress, obese - EENT Eyes: Present: PERRL ENT: hearing intact, clear oral mucosa - Neck Neck: Present: supple, normal ROM - Respiratory Respiratory effort: normal Respiratory: bilateral: diminished, rales - Cardiovascular Heart Sounds: Present: S1 & S2. Absent: rub, click - Extremities Extremities: pulses symmetrical, No edema Peripheral Pulses: within normal limits - Abdominal General gastrointestinal: Present: soft, non-tender, non-distended, normal bowel sounds Female genitourinary: Present: normal - Integumentary Integumentary: Present: clear, warm, dry - Musculoskeletal Musculoskeletal: gait normal, strength equal bilaterally - Psychiatric Psychiatric: appropriate mood/affect, intact judgment & insight - Neurologic Neurologic: CNII-XII intact, moves all extremities HEART Score - HEART Score Troponin: Troponin T < 0.010 ng/mL (0.00-0.029) 12/12/20 13:05 Results - Labs CBC & Chem 7: 12/12/20 13:05 12/12/20 13:05 Labs: Abnormal lab results 12/12/20 12/12/20 12/12/20 Range/Units 13:05 13:05 13:05 MCH 27 L (28-32) pg D-Dimer 953.02 H (0-234) ng/mlDDU Potassium 3.2 L (3.6-5.0) mmol/L Chloride 107.6 H (98-107) mmol/L Glucose 143 H (65-100) mg/dL Alkaline Phosphatase 143 H (35-129) units/L NT-Pro-B Natriuret Pep 2691 H (0-450) pg/mL Albumin 3.6 L (3.9-5) g/dL Assessment and Plan - Patient Problems (1) New onset of congestive heart failure Status: Acute Plan to address problem: CHF protocol: Strict I's/O, monitor urine output every shift, afterload reduction, blood pressure control, cardiology team consulted, thyroid panel, magnesium level, echocardiogram ordered and is pending at time of admission. (2) Hypertensive urgency Status: Acute Plan to address problem: Monitor blood pressure every shift, IV hydralazine every 6 hours as needed for systolic blood pressure greater than or equal to 155 mmHg, ARCHANA inhibitor, beta- filemon therapy, calcium channel filemon therapy. Adjust antihypertensive therapy to achieve systolic blood pressure as clinically indicated. (3) Obesity hypoventilation syndrome Status: Acute Plan to address problem: Balanced diet, increase physical activity at discharge, outpatient pulmonary f ollow-up for sleep study. (4) Nicotine dependence Status: Acute Qualifiers: Nicotine product type: cigarettes Substance use status: in withdrawal Qualified Code(s): F17.213 - Nicotine dependence, cigarettes, with withdrawal Plan to address problem: Supportive care, smoking cessation counseling, behavior change counseling, +15 minutes. (5) DVT prophylaxis Status: Acute Plan to address problem: SCDs bilateral lower extremities while in bed, patient is ambulatory.
[2020-12-12] MEDS ORDERED: oxyCODONE /ACETAMINOPHEN 5-325MG TAB PO PRN (15:23)
[2020-12-12] MEDS ORDERED: ALBUTEROL 2.5 MG/3 ML NEBU IH PRN (15:23)
[2020-12-12] MEDS ORDERED: ONDANSETRON 4 MG/2 ML INJ IV PRN (15:23)
[2020-12-12] MEDS ORDERED: HYDROmorphone 1 MG/1 ML INJ IV PRN (15:23)
[2020-12-12] MEDS ORDERED: ACETAMINOPHEN 325 MG TAB PO PRN (15:23)
[2020-12-12] MEDS ORDERED: hydrALAZINE 20 MG/1 ML INJ IV PRN (15:27)
[2020-12-12 16:17] LABS: Free T4 (Free Thyroxine) 1.31 ng/dL (0.76-1.46)
[2020-12-12] MEDS ORDERED: FUROSEMIDE 20 MG/2 ML INJ IV SCH (18:00)
[2020-12-12] MEDS ORDERED: LISINOPRIL 5 MG TAB PO SCH (22:00)
[2020-12-12] MEDS ORDERED: METOPROLOL TARTRATE 25 MG TAB PO SCH (22:00)
[2020-12-13 04:28] VITALS: BP 122/70
[2020-12-13] MEDS ORDERED: PRENATAL VIT27-FE FUMARATE-FOLIC ACID VIT TAB PO SCH (10:00)
[2020-12-13] MEDS ORDERED: NIFEdipine XL 90 MG TAB PO SCH (10:00)
--- NOTE | 2020-12-14 11:21 | Electrocardiograph Report ---
[facility] Test Date: 2020-12-12 Test Time: 19:24:19 Pat Name: REGINE ISSA Department: Room: Gender: F Editor Department: [facility] : 1980 Requested By: QUENTIN ROSE Order Number: [id number] Reading MD: Nicholas Feng Measurements Intervals [place] Rate: 83 P: -11 GA: 131 QRS: 33 QRSD: 83 T: 213 QT: 423 QTc: 499 Interpretive Statements Sinus rhythm Probable LVH with secondary repol abnrm No previous ECG available for comparison Electronically Signed On 12-14-2020 11:21:26 EDT by Nicholas Feng
== END 2020-12-13 00:20 | disposition left against medical advice (07) ==
LOC: ED 12:42
DX: I16.0 Hypertensive urgency (principal); I50.21 Acute systolic (congestive) heart failure; I11.0 Hypertensive heart disease with heart failure; R06.02 Shortness of breath; J81.0 Acute pulmonary edema; F17.200 Nicotine dependence, unspecified, uncomplicated; Z88.0 Allergy status to penicillin
CPT/HCPCS: 36415; 71046; 71275; 80053; 83735; 83880; 84439; 84443; 84484; 84703; 85025; 85379; 93005; 96374; 99284; J1940; Q9967

== ENCOUNTER 2021-01-19 20:32 | Emergency (ER) | payer MEDICAID ==
--- NOTE | 2021-01-19 21:20 | Emergency Department Report ---
ED Female HPI - General Stated complaint: POSS UTI Time Seen by Provider: 01/19/21 21:18 - History of Present Illness Initial comments: 40-year-old F [place] female past medical history x4 presents emergency department complaining of a few day history of not progressing vaginal discharge and dysuria. Reports no fever, chills, sweats hemoptysis hematemesis hematochezia does notice little blood when she wipes. MD Complaint: vaginal discharge (Yellow malodorous), dysuria (Increased urinary frequency and urgency with dysuria) -: Gradual Location: suprapubic Radiation: non-radiating Severity: mild Quality: burning Consistency: constant Improves with: none Worsens with: urination Are you Now?: No Associated Symptoms: vaginal discharge, dysuria. denies: abdominal pain, nausea/vomiting, headaches, loss of appetite, shortness of breath, syncope, weakness - Related Data Home Medications Medication Instructions Recorded Confirmed Last Taken Labetalol HCl [Labetalol 300mg TAB] 600 mg PO TID 06/30/20 08/11/20 08/11/20 08:00 NIFEdipine [Procardia Xl] 30 mg PO DAILY 08/11/20 08/11/20 08/11/20 08:00 Vit-Fe Fumar-FA [ 1 tab PO DAILY 08/11/20 08/11/20 08/10/20 22:00 Vitamin] Previous Rx's Medication Instructions Recorded Last Taken Type Ibuprofen [Motrin 800 MG tab] 800 mg PO Q6H PRN #30 tablet 08/11/20 Unknown Rx oxyCODONE /ACETAMINOPHEN [Percocet 1 tab PO Q6H PRN #30 tablet 08/11/20 Unknown Rx 5/325 mg] NIFEdipine XL [Procardia Xl] 90 mg PO QDAY #30 tablet 08/14/20 Unknown Rx labetaloL [Labetalol 200mg TAB] 600 mg PO 0800,1500,2200 #90 tablet 08/14/20 Unknown Rx DOXYCYCLINE Hyclate [Vibramycin 100 mg PO BID #20 capsule 01/19/21 Unknown Rx CAP] Fluconazole [Diflucan] 150 mg PO ONCE #3 tablet 01/19/21 Unknown Rx metroNIDAZOLE [Flagyl] 2,000 mg PO ONCE #4 tablet 01/19/21 Unknown Rx Allergies Allergy/AdvReac Type Severity Reaction Status Date / Time Penicillins Allergy Rash Verified 08/11/20 09:29 ED Review of Systems ROS: Stated complaint: POSS UTI Other details as noted in HPI Comment: All other systems reviewed and negative ED Past Medical Hx - Past Medical History Hx Hypertension: Yes (CHTN) Hx Congestive Heart Failure: No Hx Diabetes: No Hx Deep Vein Thrombosis: No Hx Renal Disease: No Hx Sickle Cell Disease: No Hx Seizures: No Hx Asthma: Yes (last asthma attack years ago, has inhaler) Hx COPD: No Hx HIV: No Additional medical history: Crohns Disease. bronchitis - Surgical History Additional Surgical History: times 4. tubal ligation - Social History Smoking Status: Current Every Day Smoker - Medications Home Medications: Home Medications Medication Instructions Recorded Confirmed Last Taken Type Labetalol HCl [Labetalol 300mg TAB] 600 mg PO TID 06/30/20 08/11/20 08/11/20 08:00 History Ibuprofen [Motrin 800 MG tab] 800 mg PO Q6H PRN #30 tablet 08/11/20 Unknown Rx NIFEdipine [Procardia Xl] 30 mg PO DAILY 08/11/20 08/11/20 08/11/20 08:00 History Vit-Fe Fumar-FA [ 1 tab PO DAILY 08/11/20 08/11/20 08/10/20 22:00 History Vitamin] oxyCODONE /ACETAMINOPHEN [Percocet 1 tab PO Q6H PRN #30 tablet 08/11/20 Unknown Rx 5/325 mg] NIFEdipine XL [Procardia Xl] 90 mg PO QDAY #30 tablet 08/14/20 Unknown Rx labetaloL [Labetalol 200mg TAB] 600 mg PO 0800,1500,2200 #90 tablet 08/14/20 Unknown Rx DOXYCYCLINE Hyclate [Vibramycin 100 mg PO BID #20 capsule 01/19/21 Unknown Rx CAP] Fluconazole [Diflucan] 150 mg PO ONCE #3 tablet 01/19/21 Unknown Rx metroNIDAZOLE [Flagyl] 2,000 mg PO ONCE #4 tablet 01/19/21 Unknown Rx ED Physical Exam - General General appearance: alert, in no apparent distress - Head Head exam: Present: atraumatic, normocephalic - Eye Eye exam: Present: normal appearance, PERRL, EOMI - ENT ENT exam: Present: mucous membranes moist - Neck Neck exam: Present: normal inspection - Respiratory Respiratory exam: Present: normal lung sounds bilaterally. Absent: respiratory distress - Cardiovascular Cardiovascular Exam: Present: regular rate, normal rhythm. Absent: systolic murmur, diastolic murmur, rubs, gallop - GI/Abdominal GI/Abdominal exam: Present: soft, normal bowel sounds. Absent: tenderness, hyperactive bowel sounds, hypoactive bowel sounds, organomegaly - Extremities Exam Extremities exam: Present: normal inspection - Back Exam Back exam: Present: normal inspection. Absent: CVA tenderness (R), CVA tenderness (L) - Neurological Exam Neurological exam: Present: alert, oriented X3, normal gait - Psychiatric Psychiatric exam: Present: normal affect, normal mood - Skin Skin exam: Present: warm, dry, intact, normal color. Absent: rash ED Course Vital Signs 01/19/21 21:14 Temperature 98 F Pulse Rate 75 Respiratory 16 Rate Blood Pressure 176/102 [Left] O2 Sat by Pulse 98 Oximetry Critical care attestation.: If time is entered above; I have spent that time in minutes in the direct care of this critically ill patient, excluding procedure time. ED Disposition Clinical Impression: UTI (urinary tract infection), Vaginitis Disposition: HOME / SELF CARE / HOMELESS Condition: Stable Instructions: Vaginitis, [id number], Vaginal Yeast Infection, Adult, Urinary Tract Infection, Adult, Vaginitis, Abdominal Pain (ED) Prescriptions: Fluconazole [Diflucan] 150 mg PO ONCE #3 tablet metroNIDAZOLE [Flagyl] 2,000 mg PO ONCE #4 tablet DOXYCYCLINE Hyclate [Vibramycin CAP] 100 mg PO BID #20 capsule Referrals: [facility] [Provider Group] - 3-5 Days [facility] [Outside] - 3-5 Days
[2021-01-19 21:54] LABS: Bacteria,Urine 2+ /HPF (Negative); Bilirubin,Urine NEG (Negative); Blood,Urine SM (Negative); Color,Urine Yellow (Yellow); HCG Qualitative,Urine Negative (Negative); Urobilinogen,Urine < 2.0 mg/dL (<2.0); WBC,Urine > 182.0 /HPF (0.0-6.0)
[2021-01-20 00:31] VITALS: BP 153/70
== END 2021-01-20 00:29 | disposition home or self-care (01) ==
LOC: ED 20:32
DX: N39.0 Urinary tract infection, site not specified (principal); N76.0 Acute vaginitis; I10 Essential (primary) hypertension; J45.909 Unspecified asthma, uncomplicated; Z88.0 Allergy status to penicillin
CPT/HCPCS: 81001; 81025; 99283